=== PATIENT | female | born 1930 | race Hispanic/Latino ===

== ENCOUNTER 2017-11-17 14:31 | Emergency (ER) | payer MEDICARE ==
[2017-11-17 14:54] VITALS: BMI 25.7
[2017-11-17 15:00] VITALS: RESP 18; TEMP 97.4
--- NOTE | 2017-11-17 15:18 | ED PDOC ---
Arrival/HPI - General Chief Complaint: Trauma Time Seen by Provider: 11/17/17 15:05 Historian: Patient - History of Present Illness Narrative History of Present Illness (Text): 11/17/17 15:14 Michela Mcgarry is an 87 year old female who presents to the emergency department complaining of bruising to her right inner thigh s/p mechanical fall 5 days ago. Patient states that she was fixing blinds while standing on a stepping stool, when she fell to the floor. No loss of consciousness or head injury. Patient noticed the bruises two days after and notes that it is painful to walk. Patient went to her PMD Dr. Castro this morning, who directed her to the emergency department. Patient notes that she has been taking Advil for her pain but did not take any pain medication today. Patient denies any vomiting or any other complaints at this time. PMD: Dr. Castro Time/Duration: < week (5 days) Symptom Onset: Sudden Symptom Course: Improving Activities at Onset: Light Context: Home Past Medical History - Provider Review Nursing Documentation Reviewed: Yes - Infectious Disease Hx of Infectious Diseases: None - Tetanus Immunization Tetanus Immunization: Unknown - Cardiac Hx Hypertension: Yes - Pulmonary Hx Respiratory Disorders: No - Neurological Hx Paralysis: No - HEENT Hx HEENT Disorder: No - Renal Hx Renal Disorder: No - Endocrine/Metabolic Hx Diabetes Mellitus Type 2: Yes - Hematological/Oncological Hx Blood Transfusions: No - Integumentary Hx Dermatological Disorder: No - Musculoskeletal/Rheumatological Hx Musculoskeletal Disorders: No - Gastrointestinal Hx Gastrointestinal Disorders: No - Genitourinary/Gynecological Hx Genitourinary Disorders: No - Psychiatric Hx Emotional Abuse: No Hx Physical Abuse: No Hx Substance Use: No - Past Surgical History Past Surgical History: No Previous - Surgical History Hx Hysterectomy: Yes - Anesthesia Hx Anesthesia Reactions: No - Suicidal Assessment Feels Threatened In Home Enviroment: No Family/Social History - Physician Review Nursing Documentation Reviewed: Yes Family/Social History: No Known Family HX Smoking Status: Never Smoked Hx Alcohol Use: No Hx Substance Use: No Hx Substance Use Treatment: No Allergies/Home Meds Allergies/Adverse Reactions: Allergies No Known Allergies Allergy (Verified 08/21/14 16:27) Home Medications: Home Meds Medication Instructions Recorded Confirmed Lisinopril [Prinivil] 1 tab PO DAILY 11/17/17 11/17/17 SITagliptin [Januvia] 1 tab PO DAILY 11/17/17 11/17/17 Review of Systems - Physician Review All systems were reviewed & negative as marked: Yes - Review of Systems Constitutional: absent: Fevers, Night Sweats Eyes: absent: Vision Changes ENT: absent: Hearing Changes Respiratory: absent: SOB, Cough Cardiovascular: absent: Chest Pain Gastrointestinal: absent: Abdominal Pain Genitourinary Female: absent: Dysuria, Frequency Musculoskeletal: absent: Arthralgias Skin: Other (bruising to right inner thigh) Neurological: absent: Headache Endocrine: absent: Diaphoresis Hemo/Lymphatic: absent: Adenopathy Psychiatric: absent: Anxiety, Depression Physical Exam - Physical Exam Narrative Physical Exam (Text): Constitutional: No acute distress. Head: Normocephalic. Atraumatic. Eyes: PERRL. ENT: Moist mucous membranes. Neck: Supple. No Midline tenderness. Cardiovascular: Regular rate. Chest: No tenderness. Respiratory: Clear to auscultation bilaterally. GI: Soft. Nontender. Nondistended. Back: No CVA tenderness. No Midline tenderness. Musculoskeletal: Ecchymosis to the right medial thigh. No tenderness or obvious swelling. Full ROM. Skin: No rash. Neurologic: Alert, no focal deficit. Vital Signs Reviewed: Yes Vital Signs Temp Pulse Resp BP Pulse Ox 11/17/17 17:20 75 18 152/82 H 98 11/17/17 14:58 97.4 F L 93 H 18 142/82 95 Temperature: Afebrile Blood Pressure: Normal Pulse: Tachycardic Respiratory Rate: Normal Appearance: Positive for: Well-Appearing, Non-Toxic, Comfortable Pain Distress: None Mental Status: Positive for: Alert and Oriented X 3 Medical Decision Making ED Course and Treatment: 11/17/17 15:15 Impression: 87 year old female complaining of bruising to right inner thigh s/p mechanical fall 5 days ago. Plan: -- Femur X-ray -- Right Hip X-ray -- Toradol -- Reassess and disposition Progress Notes: 11/17/17 15:[address] Castro who is aware and agrees with patient plan. 11/17/17 16:12 Right Femur X-ray Creator : Candis Cook MD FINDINGS: FEMUR:Bone alignment and mineralization are normal. There is no acute fracture or bone destruction SOFT TISSUES:Normal. OTHER FINDINGS:None. IMPRESSION: No acute fracture. 11/17/17 16:14 Right Hip X-ray: Creator : Candis Cook MD FINDINGS: BONES: The pelvic ring is intact. There is a probable acute nondisplaced fracture in the right inferior pubic ramus. There is stable focal sclerosis in the periarticular left sacrum. JOINTS:The joint spaces are preserved. 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 SOFT TISSUES:Normal. OTHER FINDINGS:None. IMPRESSION: Suspect acute nondisplaced fracture in the right inferior pubic ramus. Please note occult fractures cannot be excluded on plain radiographs. If there is a persistent clinical concern, an MRI of the hip may be performed for further evaluation. 11/17/17 17:27 Dr. Quinn consulted, evaluated patient in Emergency department, will see in office in 3 weeks, given care instructions. - RAD Interpretation Radiology Orders: 11/17/17 15:14 Hip Right [HIP MIN 2V W/ PELVIS RT] [RAD] Stat 11/17/17 15:15 FEMUR MIN 2 VIEWS RT [RAD] Stat - Medication Orders Current Medication Orders: Discontinued Medications Ketorolac Tromethamine (Toradol) 15 mg IM STAT STA Stop: 11/17/17 15:18 Last Admin: 11/17/17 16:15 Dose: 15 mg MAR Pain Assessment Document 11/17/17 16:15 OCS (Rec: 11/17/17 16:17 OCS [id number]) Pain Reassessment Is this a pain reassessment? Yes Sleep Is patient sleeping during reassessment? No Presence of Pain Presence of Pain Yes IM Administration Charges Document 11/17/17 16:15 OCS (Rec: 11/17/17 16:17 OCS [id number]) Charges for Administration # of IM Administrations 1 - Scribe Statement The provider has reviewed the documentation as recorded by the Zaida Layton Provider Scribe Attestation: All medical record entries made by the Scribe were at my direction and personally dictated by me. I have reviewed the chart and agree that the record accurately reflects my personal performance of the history, physical exam, medical decision making, and the department course for this patient. I have also personally directed, reviewed, and agree with the discharge instructions and disposition. Disposition/Present on Arrival - Present on Arrival Any Indicators Present on Arrival: No History of DVT/PE: No History of Uncontrolled Diabetes: No Urinary Catheter: No History of Decub. Ulcer: No History Surgical Site Infection Following: None - Disposition Have Diagnosis and Disposition been Completed?: Yes Diagnosis: Inferior pubic ramus fracture Disposition: HOME/ ROUTINE Disposition Time: 17:28 Patient Plan: Discharge Condition: STABLE Discharge Instructions (ExitCare): Pelvic Fracture (DC) Referrals: Sheryl Castro MD [Primary Care Provider] - Follow up with primary Dagoberto Cardona DO [Staff Provider] - Follow up with primary Forms: [facility] (Moroccan)
--- NOTE | 2017-11-17 16:02 | RAD ---
PROCEDURE: Right Hip Radiographs. HISTORY: Fall, thigh bruising COMPARISON: None. FINDINGS: BONES: The pelvic ring is intact. There is a probable acute nondisplaced fracture in the right inferior pubic ramus. There is stable focal sclerosis in the periarticular left sacrum. JOINTS: The joint spaces are preserved. 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 SOFT TISSUES: Normal. OTHER FINDINGS: None. IMPRESSION: Suspect acute nondisplaced fracture in the right inferior pubic ramus. Please note occult fractures cannot be excluded on plain radiographs. If there is a persistent clinical concern, an MRI of the hip may be performed for further evaluation.
--- NOTE | 2017-11-17 16:04 | RAD ---
PROCEDURE: Right Femur Radiographs. HISTORY: Thigh bruising COMPARISON: None. TECHNIQUE: AP and Lateral Radiographs of the right femur. FINDINGS: FEMUR: Bone alignment and mineralization are normal. There is no acute fracture or bone destruction SOFT TISSUES: Normal. OTHER FINDINGS: None. IMPRESSION: No acute fracture.
[2017-11-17 17:21] VITALS: BP 152/82; PULSE 75; O2SAT 98
--- NOTE | 2017-11-18 03:41 | CON ---
DATE: 11/17/2017 ORTHOPEDIC CONSULTATION HISTORY OF PRESENT ILLNESS: An 87-year-old female of Dr. Castro. The patient was seen on 11/17/2017 for a fall at home 4 days ago. No loss of consciousness, but she injured her right proximal thigh when she fell on the stool. X-ray shows she has a nondisplaced fracture of the inferior ischeal ramus with some sclerosis _ it has been there and it is starting to heal. She can actually do a straight leg raising. She has some mild ecchymosis of the right proximal thigh anteriorly and we will treat her symptomatically with a brace or a cane, does not have to be admitted. I will follow her in the office and I will talk to Dr. Castro. FINAL DIAGNOSIS: Nondisplaced fracture, right ischeal ramus. PLAN: Ambulate with a cane and activities of daily living without much lifting and minimizes the stairs. Dagoberto Cardona DO MTDNain
== END 2017-11-17 17:52 | disposition home or self-care (01) ==
LOC: ED 14:31
DX: S32.501A Unspecified fracture of right pubis, initial encounter for closed fracture (principal); W17.89XA Other fall from one level to another, initial encounter; Y92.009 Unspecified place in unspecified non-institutional (private) residence as the place of occurrence of the external cause
CPT/HCPCS: 73502; 73552; 96372; 99284; J1885

== ENCOUNTER 2018-09-01 10:25 | Inpatient (IN) | payer MEDICARE ==
[2018-09-01 10:32] VITALS: BMI 25.0
--- NOTE | 2018-09-01 11:50 | ED PDOC ---
Arrival/HPI - General Chief Complaint: Lower Extremity Problem/Injury Time Seen by Provider: 09/01/18 10:39 Historian: Patient - History of Present Illness Narrative History of Present Illness (Text): 09/01/18 11:51 88 year old female, whose past medical history includes hypertension, diabetes, and hysterectomy, presents to the emergency department complaining of left hip pain s/p mechanical fall last night. She states she was in the kitchen last night when she turned quickly and fell landing on her left side. She says she doesn't usually make quick turns because she has a knee problem and knows if she does she will fall. Patient noted while sitting or laying down she has no pain, but the pain worsens in her hip any time she puts weight on it. She has taken Tylenol for the pain with minimal improvement. She denies head injury, headache, dizziness, weakness, shortness of breath, chest pain, fevers, chills, abdominal pain, nausea, vomiting, diarrhea, neck pain, or any other complaint. PMD: Dr. Sheryl Castro Time/Duration: 24 hours Symptom Onset: Gradual Symptom Course: Unchanged Activities at Onset: Light Context: Home Past Medical History - Provider Review Nursing Documentation Reviewed: Yes - Travel History Have you recently traveled outside [place] w/in the past 3 mons?: No - Infectious Disease Hx of Infectious Diseases: None - Tetanus Immunization Tetanus Immunization: Unknown - Cardiac Hx Hypertension: Yes - Pulmonary Hx Respiratory Disorders: No - Neurological Hx Paralysis: No - HEENT Hx HEENT Disorder: No - Renal Hx Renal Disorder: No - Endocrine/Metabolic Hx Diabetes Mellitus Type 2: Yes - Hematological/Oncological Hx Blood Transfusions: No - Integumentary Hx Dermatological Disorder: No - Musculoskeletal/Rheumatological Hx Musculoskeletal Disorders: No - Gastrointestinal Hx Gastrointestinal Disorders: No - Genitourinary/Gynecological Hx Genitourinary Disorders: No - Psychiatric Hx Emotional Abuse: No Hx Physical Abuse: No Hx Substance Use: No - Past Surgical History Past Surgical History: No Previous - Surgical History Hx Hysterectomy: Yes - Anesthesia Hx Anesthesia: Yes Hx Anesthesia Reactions: No - Suicidal Assessment Feels Threatened In Home Enviroment: No Family/Social History - Physician Review Nursing Documentation Reviewed: Yes Family/Social History: No Known Family HX Smoking Status: Never Smoked Hx Alcohol Use: No Hx Substance Use: No Hx Substance Use Treatment: No Allergies/Home Meds Allergies/Adverse Reactions: Allergies No Known Allergies Allergy (Verified 08/21/14 16:27) Home Medications: Home Meds Medication Instructions Recorded Confirmed Lisinopril [Prinivil] 1 tab PO DAILY 11/17/17 09/01/18 SITagliptin [Januvia] 1 tab PO DAILY 11/17/17 09/01/18 Review of Systems - Physician Review All systems were reviewed & negative as marked: Yes - Review of Systems Constitutional: absent: Fatigue, Fevers Eyes: absent: Vision Changes, Photophobia, Eye Pain Respiratory: absent: SOB, Cough Cardiovascular: absent: Chest Pain, Palpitations Gastrointestinal: absent: Abdominal Pain, Diarrhea, Nausea, Vomiting Genitourinary Female: absent: Dysuria, Frequency Musculoskeletal: Arthralgias, Other (left sided hip pain). absent: Back Pain, Neck Pain Skin: absent: Rash, Pruritis Neurological: absent: Headache, Dizziness Physical Exam Vital Signs Reviewed: Yes Vital Signs Temp Pulse Resp BP Pulse Ox 09/01/18 10:40 97.7 F 95 H 18 130/83 97 Temperature: Afebrile Blood Pressure: Normal Pulse: Tachycardic Respiratory Rate: Normal Appearance: Positive for: Well-Appearing, Non-Toxic, Comfortable Pain Distress: None Mental Status: Positive for: Alert and Oriented X 3 - Systems Exam Head: Present: Atraumatic, Normocephalic Pupils: Present: PERRL Extroacular Muscles: Present: EOMI Conjunctiva: Present: Normal Mouth: Present: Moist Mucous Membranes Neck: Present: Normal Range of Motion. No: MIDLINE TENDERNESS, Paraspinal Tenderness Respiratory/Chest: Present: Clear to Auscultation, Good Air Exchange. No: Respiratory Distress, Accessory Muscle Use Cardiovascular: Present: Regular Rate and Rhythm, Normal S1, S2. No: Murmurs Abdomen: No: Tenderness, Distention, Peritoneal Signs, Rebound, Guarding Back: Present: Normal Inspection Upper Extremity: Present: Normal Inspection. No: Cyanosis, Edema Lower Extremity: Present: NORMAL PULSES, Tenderness (left sided tenderness over the left hip with ecchymosis noted anteriorly/medially), Neurovascularly Intact, Capillary Refill < 2 s. No: Edema, Normal ROM (limited rom of left hip), Swelling, Erythema, Deformity, Temperature Abnormalties Neurological: Present: GCS=15, Speech Normal, Normal Sensory Function Skin: Present: Warm, Dry, Normal Color. No: Rashes Psychiatric: Present: Alert, Oriented x 3 Medical Decision Making ED Course and Treatment: 09/01/18 11:51 Impression: 88 year old female who presents to the emergency department complaining of left sided hip pain. Plan: -- Head Ct w/o contrast -- Left hip X-ray -- Reassess and disposition Prior Visits: Notes and results from previous visits were reviewed. Progress Notes: head CT:FINDINGS: HEMORRHAGE: No intracranial hemorrhage. BRAIN: No mass effect or edema. Mild to moderate age-appropriate diffuse cerebral atrophy. Mild periventricular white matter lucency consistent chronic microvascular ischemic change. No evidence of acute infarct. VENTRICLES: Unremarkable. No hydrocephalus. CALVARIUM: Unremarkable. PARANASAL SINUSES: Unremarkable as visualized. No significant inflammatory changes. MASTOID AIR CELLS: Unremarkable as visualized. No inflammatory changes. OTHER FINDINGS: None. IMPRESSION: No intracranial hemorrhage. Age related atrophy and chronic white matter ischemic change. Otherwise unremarkable. X-rays of the left hip show inferior and superior pubic ramus fractures on the left side. will do a CAT scan of the pelvis to better evaluate CT pelvis; FINDINGS: There are old healed fractures of the right superior and inferior pubic rami. There are acute nondisplaced fractures of the right inferior pubic ramus and of the junction of the left superior pubic ramus with the left acetabulum. No symphyseal fracture is seen. There is no hip fracture seen. The sacrum appears intact. There is no soft tissue hematoma. Intraperitoneal structures of the pelvis are unremarkable. No abnormal bowel loops. No evidence of ascites/hemoperitoneum. Unremarkable urinary bladder. Status post hysterectomy. IMPRESSION: Acute nondisplaced fractures of left superior and inferior pubic rami as described. Old healed fractures of the right superior and inferior pubic rami. CBC within normal limits CMP glucose 304 pt reassessment: Patient is resting comfortably in the emergency room. Vital signs are stable. All results discussed in depth with the patient and her daughter.case was discussed with Dr. Castro in depth. He advised Dr. Boles for consult. I spoke with Dr. Kai Barclay in depth regarding the case and he saw patient at bedside advised admission for inability to ambulate with multiple pelvic fractures. all aspects of this case were discussed the attending of record. Impression: Pelvic fracture, inability to ambulate Admit to [facility] RAD Interpretation Radiology Orders: 09/01/18 11:09 HEAD W/O CONTRAST [CT] Stat Hip Left [HIP MIN 2V W/ PELVIS LT] [RAD] Stat - Scribe Statement The provider has reviewed the documentation as recorded by the Scribe Mary Hinson Provider Scribe Attestation: All medical record entries made by the Scribe were at my direction and personally dictated by me. I have reviewed the chart and agree that the record accurately reflects my personal performance of the history, physical exam, medical decision making, and the department course for this patient. I have also personally directed, reviewed, and agree with the discharge instructions and disposition. Disposition/Present on Arrival - Present on Arrival Any Indicators Present on Arrival: No History of DVT/PE: No History of Uncontrolled Diabetes: No Urinary Catheter: No History of Decub. Ulcer: No History Surgical Site Infection Following: None - Disposition Have Diagnosis and Disposition been Completed?: Yes Diagnosis: Fracture of inferior pubic ramus, Fracture of superior pubic ramus, Unable to ambulate Disposition: HOSPITALIZED Disposition Time: 12:20 Patient Plan: Admission Patient Problems: Current Active Problems Problem Status Onset Fracture of inferior pubic ramus Acute Fracture of superior pubic ramus Acute Condition: FAIR Forms: [employer] (Upper Sorbian)
--- NOTE | 2018-09-01 12:56 | CT ---
Date of service: 09/01/2018 PROCEDURE: CT HEAD WITHOUT CONTRAST. HISTORY: fall COMPARISON: None available. TECHNIQUE: Axial computed tomography images were obtained through the head/brain without intravenous contrast. Radiation dose: Total exam DLP = 865.25 mGy-cm. This CT exam was performed using one or more of the following dose reduction techniques: Automated exposure control, adjustment of the mA and/or kV according to patient size, and/or use of iterative reconstruction technique. FINDINGS: HEMORRHAGE: No intracranial hemorrhage. BRAIN: No mass effect or edema. Mild to moderate age-appropriate diffuse cerebral atrophy. Mild periventricular white matter lucency consistent chronic microvascular ischemic change. No evidence of acute infarct. VENTRICLES: Unremarkable. No hydrocephalus. CALVARIUM: Unremarkable. PARANASAL SINUSES: Unremarkable as visualized. No significant inflammatory changes. MASTOID AIR CELLS: Unremarkable as visualized. No inflammatory changes. OTHER FINDINGS: None. IMPRESSION: No intracranial hemorrhage. Age related atrophy and chronic white matter ischemic change. Otherwise unremarkable.
[2018-09-01 13:36] LABS: BASO # 0.03 K/mm3 (0.0-2.0); BASO % 0.4 % (0.0-3.0); EOS % 0.4 % (1.5-5.0); HEMOGLOBIN 13.2 g/dL (12.0-16.0); LYMPH # 1.2 (1.2-3.4); MEAN CELL VOLUME 88.3 fl (80.0-105.0); MEAN CORPUSCULAR HEMOGLOBIN 30.3 pg (25.0-35.0); MEAN CORPUSCULAR HGB CONC 34.4 g/dl (31.0-37.0); MEAN PLATELET VOLUME 10.4 fl (7.0-11.0); MONO # 0.4 (0.1-0.6); MONO % 6.2 % (1.0-6.0); RBC 4.35 10^6/uL (3.5-6.1); RED CELL DISTRIBUTION WIDTH 12.8 % (11.5-14.5); WHITE BLOOD COUNT 7.1 10^3/uL (4.5-11.0)
[2018-09-01 13:53] LABS: INR 1.11; PARTIAL THROMBOPLASTIN TIME 30.2 Seconds (26.9-38.3); PROTHROMBIN TIME 12.5 SECONDS (9.4-12.5)
[2018-09-01 13:55] LABS: ALB/GLOB RATIO 1.3 (1.1-1.8); ALBUMIN 3.7 g/dL (3.0-4.8); ALT/SGPT 23 U/L (7-56); AST/SGOT 20 U/L (14-36); BLOOD UREA NITROGEN 21 mg/dL (7-21); CALCIUM 9.9 mg/dL (8.4-10.5); GFR NON-AFRICAN AMERICAN 59
--- NOTE | 2018-09-01 13:59 | RAD ---
PROCEDURE: Left Hip X-ray Radiographs. HISTORY: hip pain COMPARISON: 11/17/2017 FINDINGS: BONES: Probable healed fracture right inferior pubic ramus. Suspected fracture lateral aspect left inferior pubic ramus and questionable healed or healing fracture medial aspect left inferior pubic ramus. Apparent bony gap may be due to osteopenia in this segment of bone there is probable nondisplaced fracture of the lateral aspect left superior pubic ramus. Question fracture of left pubic symphysis of indeterminate age. Consider further evaluation with computed tomography of the pelvis. JOINTS: Normal. SOFT TISSUES: Normal. OTHER FINDINGS: None. IMPRESSION: Multiple pelvic fractures some of which are likely old. Recommend further evaluation with computed tomography of the pelvis. These findings were discussed by telephone with Dr. Mohamud at 1:55 p.m. on 09/01/2018.
--- NOTE | 2018-09-01 14:16 | CT ---
Date of service: 09/01/2018 PROCEDURE: CT pelvis HISTORY: fall, left hip pain, ? pelvic fx on ct COMPARISON: 12/13/2015 TECHNIQUE: 2.5 mm contiguous axial sections were acquired through the pelvis. Sagittal and coronal images were reformatted from the axial scan. Total exam DLP: 485.97 mGy-cm. This CT exam was performed using 1 or more of the following dose reduction techniques: Automated exposure control, adjustment of the mA and/or kV according to patient size, and/or use of iterative reconstruction technique. FINDINGS: There are old healed fractures of the right superior and inferior pubic rami. There are acute nondisplaced fractures of the right inferior pubic ramus and of the junction of the left superior pubic ramus with the left acetabulum. No symphyseal fracture is seen. There is no hip fracture seen. The sacrum appears intact. There is no soft tissue hematoma. Intraperitoneal structures of the pelvis are unremarkable. No abnormal bowel loops. No evidence of ascites/hemoperitoneum. Unremarkable urinary bladder. Status post hysterectomy. IMPRESSION: Acute nondisplaced fractures of left superior and inferior pubic rami as described. Old healed fractures of the right superior and inferior pubic rami.
--- NOTE | 2018-09-01 17:15 | CT ---
Date of service: 09/01/2018 PROCEDURE: CT Lumbar Spine without contrast HISTORY: stenosis COMPARISON: None available. TECHNIQUE: Axial computed tomography images were obtained of the lumbar spine without the use of intravenous contrast. Coronal and sagittal reformatted images were created and reviewed. Radiation dose: Total exam DLP = 984.66 mGy-cm. This CT exam was performed using one or more of the following dose reduction techniques: Automated exposure control, adjustment of the mA and/or kV according to patient size, and/or use of iterative reconstruction technique. FINDINGS: VERTEBRAE: Vertebral bodies are maintained in height. Normal vertebral alignment is maintained. The transverse processes and posterior elements are intact. There is minimal levo scoliotic curvature. DISCS/SPINAL CANAL/NEURAL FORAMINA: L1-2: Narrowed disc space. Minimal disc bulge. No focal disc herniation. Ligamentum flavum hypertrophy. Facet arthropathy. Severe right and moderate left neural foraminal stenosis. Mild central spinal stenosis. L2-3: Narrowed disc space. Moderate right and mild left neural foraminal stenosis. L3-4: Narrowed disc space. Calcified disc bulge. Bilateral facet arthropathy. No focal disc herniation. Moderate central spinal stenosis. Moderate bilateral neural foraminal stenosis. L4-5: Narrowed disc space. No disc bulge or herniation. Bilateral facet arthropathy and mild ligamentum flavum hypertrophy. Mild central spinal stenosis. Moderate to severe bilateral neural foraminal stenosis. L5-S1: Narrowed disc space. No disc bulge or herniation. Large osteophyte seen about the disc space posteriorly. Mild central spinal stenosis bilateral facet arthropathy. Moderate right and severe left neural foraminal stenosis. PARASPINAL SOFT TISSUES: Unremarkable. OTHER FINDINGS: None. IMPRESSION: Multilevel degenerative disc disease. Multilevel disc bulge. No focal disc herniation. Multilevel central spinal stenosis and bilateral neural foraminal stenosis as described. No acute fracture.
[2018-09-01] MEDS: Insulin Reg-LOW-Coverage SC SCH ×2 (18:12→22:57)
--- NOTE | 2018-09-02 00:26 | CON ---
DATE: 09/01/2018 ORTHOPEDIC REPORT HISTORY OF PRESENT ILLNESS: The patient is an 88-year-old female came into the ER today under Dr. Castro service for falling down last night at home and sustaining a stable left pubic and ischial rami fracture with ability to straight leg raising, weak on the left than the right because of the fracture, but she had a similar fracture on the right side of the pelvis about 4 months ago, which healed well and resolved and she still ambulates with a walker, but at this time she feels her legs gave away and she fell, this could be a sign of spinal stenosis of lumbar spine. So, while she is in the hospital we will get a lumbar spine CAT scan to see if she has spinal stenosis. If that is the case, epidural may be able to help her and we will do physical therapy, so she minimizes the chance of falling again and would get her up out of bed to avoid disuse atrophy.she also c/o bilatera knee pain.to also get x-rays of her knees. FINAL DIAGNOSES AND PLAN: Stable left pubic and ischial rami fracture and to workup for spinal stenosis of the lumbar spine that could cause weakness to the lower extremities and that can cause her to fall and when she leaves the rehab portion of her stay, she should consider going, she will not live alone, but to be with her family member or extended subacute rehab. Dagoberto Cardona DO MTDNain
--- NOTE | 2018-09-02 01:10 | HP ---
DATE OF EXAM: 09/01/2018 HISTORY OF PRESENT ILLNESS: This is an 88-year-old female who lives alone at home who was referred into the emergency room with the assistance of [facility] [place], [place] ambulance by family. When reported that the night prior when the patient was getting up to get a cup of tea, she fell and developed some pain in the left groin area. She notified the family the following morning. She denies any loss of consciousness, vertigo, headache, chest pain, shortness of breath, fever or chills. PAST MEDICAL HISTORY: She has a past medical history of vaginal bleeding from a cyst, phi-phcgmgb-bfxyblpmp diabetes, hypertension, nondisplaced fracture of the right pelvis, arthritis of the right knee, and history of hysterectomy. HOME MEDICATIONS: Consist of glimepiride 4 mg twice a day, lisinopril 10 mg daily, and she is on a heart-healthy low carb diet. SOCIAL HISTORY: She is a nonsmoker, nondrinker, and non drug user. ALLERGIES: SHE DENIES. PHYSICAL EXAMINATION: GENERAL: She is alert and oriented x3. NECK: Supple. LUNGS: Clear. HEART: S1 and S2 rhythm. ABDOMEN: Soft with positive bowel sounds. EXTREMITIES: No evidence of edema. There is discomfort in the left groin area upon elevation of the left leg. There is no evidence of ecchymosis. LABORATORY DATA: Shows a WBC of 7.1, RBC 4.35, hemoglobin 13.2, hematocrit 38.4, and platelet count is 137. PT is 12.5 with an INR of 1.11 and PTT is 30.2. Chemistry shows normal electrolytes. The BUN is 21 and the creatinine is 0.9. Her blood sugar is 304. LFTs are normal. Albumin is 3.7. The patient had a CAT scan of the head, which is read by the radiologist as showing no intracranial hemorrhage, age related atrophy, and chronic white matter ischemic changes. She had an x-ray of the hip and pelvis, which showed multiple pelvic fractures some of which are likely old, fracture of the left pubic symphysis of indeterminate age, fracture of the left lateral aspect of the left inferior pubic ramus questionable healed fracture of the medial aspect of left inferior pubic ramus, and probable healed fracture of the right inferior pubic ramus. She had a CT of the pelvis that showed an acute nondisplaced fractures of the left superior and inferior pubic rami, old healed fracture of the right superior and inferior pubic rami. IMPRESSION: This is an 88-year-old female fell at home sustaining fractures to the pelvis. 1. Fractures of the pelvis with pain and gait disorder. 2. Svf-ehaxcta-hcijtesrs diabetes with hyperglycemia. 3. Essential hypertension history. PLAN: 1. We will get an orthopedic consult. 2. Pain management. 3. Admit the patient with diet and sugar control. Further treatment plan pending results of further diagnostic studies and input from the individual consultants. Sehryl Castro MD MTDD
[2018-09-02] MEDS: Insulin Reg-LOW-Coverage SC SCH ×4 (08:00→22:00)
--- NOTE | 2018-09-02 11:44 | PN ---
DATE: 09/02/2018 SUBJECTIVE: An 88-year-old female admitted to [facility] after a mechanical fall at home as per the patient. OBJECTIVE: VITAL SIGNS: Temperature is 98, her pulse is 63, blood pressure is 138/78, respiratory rate is 18, oxygen sat is 96% on room air. GENERAL: She is alert and oriented x3. NECK: Supple. LUNGS: Clear. HEART: S1, S2 rhythm. ABDOMEN: Soft with positive bowel sounds. EXTREMITIES: Show no evidence of edema. LABORATORY DATA: 1. The patient had a CAT scan of the head which was reported as showing no acute findings. She had a CAT scan of the lumbar spine which is reported as showing spinal stenosis. An orthopedic consult has been requested. 2. She has non-insulin dependent diabetes and placed on a diet with medication. We will monitor the patient's blood sugars. IMPRESSION AND PLAN: We will continue current level of care. She is status post fall at home with fractures of the left pelvis. Meds reviewed with staff and patient. >35minutes Sheryl Castro MD WALT
--- NOTE | 2018-09-02 12:38 | CP.PCM.APN ---
Subjective - Date & Time of Evaluation Date of Evaluation: 09/02/18 Time of Evaluation: 08:00 - Subjective Subjective: Pt seen and examined at [facility]. C/O L inner thigh pain when moving. Objective - Vital Signs/Intake and Output Vital Signs (last 24 hours): Temp Pulse Resp BP Pulse Ox 98 F 63 18 140/80 96 09/02/18 07:09 09/02/18 09:22 09/02/18 07:09 09/02/18 09:22 09/02/18 07:09 - Medications Medications: Current Medications Acetaminophen (Tylenol 325mg Tab) 325 mg PO Q8H PRN PRN Reason: Pain, moderate (4-7) Last Admin: 09/01/18 19:59 Dose: 325 mg Codeine Sulfate (Codeine) 30 mg PO Q8H PRN PRN Reason: Pain, moderate (4-7) Glimepiride (Amaryl) 4 mg PO ACBD [facility] Last Admin: 09/02/18 09:22 Dose: 4 mg Insulin Human Regular (Humulin R Low) 0 units SC ACHS [facility]; Protocol Last Admin: 09/02/18 11:54 Dose: 4 units Lisinopril (Zestril) 10 mg PO DAILY [facility] Last Admin: 09/02/18 09:22 Dose: 10 mg - Labs Labs: 09/01/18 13:20 09/01/18 13:20 PT 12.5 SECONDS (9.4-12.5) 09/01/18 13:20 INR 1.11 09/01/18 13:20 APTT 30.2 Seconds (26.9-38.3) 09/01/18 13:20 - Constitutional Appears: Well, No Acute Distress - Eye Exam Eye Exam: Normal appearance - Neck Exam Neck Exam: Full ROM - Respiratory Exam Respiratory Exam: Clear to Ausculation Bilateral, NORMAL BREATHING PATTERN - Cardiovascular Exam Cardiovascular Exam: REGULAR RHYTHM, +S1, +S2 - GI/Abdominal Exam GI & Abdominal Exam: Soft, Normal Bowel Sounds - Rectal Exam Rectal Exam: Deferred - Extremities Exam Extremities Exam: Normal Inspection - Neurological Exam Neurological Exam: Alert, Awake, Oriented x3 Assessment and Plan - Assessment and Plan (Free Text) Assessment: Pt is an 88 y.o. female w/ pmhx of hypertension, diabetes, and hysterectomy who presented to ED w/ c/o left hip pain s/p mechanical fall. She was found to have acute nondisplace fx of L superior and inferior pubic rami. Impressions Head CT 09/01/18 11:09 IMPRESSION: No intracranial hemorrhage. Age related atrophy and chronic white matter ischemic change. Otherwise unremarkable. Hip/Pelvis X-Ray 09/01/18 11:09 IMPRESSION: Multiple pelvic fractures some of which are likely old. Recommend further evaluation with computed tomography of the pelvis. These findings were discussed by telephone with Dr. Mohamud at 1:55 p.m. on 09/01/2018. Pelvis CT 09/01/18 12:20 IMPRESSION: Acute nondisplaced fractures of left superior and inferior pubic rami as described. Old healed fractures of the right superior and inferior pubic rami. Lumbar Spine CT 09/01/18 15:27 IMPRESSION: Multilevel degenerative disc disease. Multilevel disc bulge. No focal disc herniation. Multilevel central spinal stenosis and bilateral neural foraminal stenosis as described. No acute fracture. Plan: Pain management Ortho on consult Physical therapy pending REHANA/AINSLEY dc planning Will continue to follow
--- NOTE | 2018-09-02 14:12 | CP.PCM.CON ---
History of Present Illness - History of Present Illness History of Present Illness: Seen for Dr. Bautista- pain management 88 year old female s/p mechanical fall now with pain in the left groin which is only elicited with weight bearing/movement of left lower extremity. Denies any LOC, vertigo, chest pain or shortness of breath. Pain described as dull, 'deep in my groin' and subsides when laying still and not moving Review of Systems - Review of Systems All systems: reviewed and no additional remarkable complaints except Review of Systems: per HPI Past Patient History - Infectious Disease Hx of Infectious Diseases: None - Tetanus Immunizations Tetanus Immunization: Unknown - Past Social History Smoking Status: Never Smoked - CARDIAC Hx Hypertension: Yes - PULMONARY Hx Respiratory Disorders: No - NEUROLOGICAL Hx Neurological Disorder: No - HEENT Hx HEENT Problems: No Other/Comment: glasses for reading - RENAL Hx Chronic Kidney Disease: No - ENDOCRINE/METABOLIC Hx Diabetes Mellitus Type 1: Yes - HEMATOLOGICAL/ONCOLOGICAL Hx Blood Disorders: No - INTEGUMENTARY Hx Dermatological Problems: No - MUSCULOSKELETAL/RHEUMATOLOGICAL Hx Musculoskeletal Disorders: No Hx Falls: Yes - GASTROINTESTINAL Hx Gastrointestinal Disorders: No - GENITOURINARY/GYNECOLOGICAL Hx Genitourinary Disorders: No - PSYCHIATRIC Hx Psychophysiologic Disorder: No - SURGICAL HISTORY Hx Surgeries: Yes - ANESTHESIA Hx Anesthesia: Yes Hx Anesthesia Reactions: No Meds Allergies/Adverse Reactions: Allergies Allergy/AdvReac Type Severity Reaction Status Date / Time No Known Allergies Allergy Verified 08/21/14 16:27 - Medications Medications: Current Medications Acetaminophen (Tylenol 325mg Tab) 325 mg PO Q8H PRN PRN Reason: Pain, moderate (4-7) Last Admin: 09/01/18 19:59 Dose: 325 mg Codeine Sulfate (Codeine) 30 mg PO Q8H PRN PRN Reason: Pain, moderate (4-7) Glimepiride (Amaryl) 4 mg PO ACBD [facility] Last Admin: 09/02/18 09:22 Dose: 4 mg Insulin Human Regular (Humulin R Low) 0 units SC [facility]; Protocol Lisinopril (Zestril) 10 mg PO DAILY [facility] Last Admin: 09/02/18 09:22 Dose: 10 mg Sitagliptin Phosphate (Januvia) 100 mg PO DAILY [facility] Physical Exam - Extremities Exam Additional comments: strength 5/5 in lower extremities, sensation equal and intact bilaterally. No swelling, redness noted. Results - Vital Signs Recent Vital Signs: Last Vital Signs Temp 98 F 09/02/18 07:09 Pulse 63 09/02/18 09:22 Resp 18 09/02/18 07:09 BP 140/80 09/02/18 09:22 Pulse Ox 96 09/02/18 07:09 - Labs Result Diagrams: 09/01/18 13:20 09/01/18 13:20 Labs: Laboratory Results - last 24 hr 09/01/18 09/02/18 22:57 06:30 POC Glucose (mg/dL) 229 H Hemoglobin A1c 11.1 H D Assessment & Plan - Assessment and Plan (Free Text) Assessment: Plan to follow from Dr. Bautista
--- NOTE | 2018-09-02 16:17 | RAD ---
Date of service: 09/01/2018 PROCEDURE: Bilateral Knee Radiographs. HISTORY: knee pain COMPARISON: None. FINDINGS: BONES: No acute fracture or destructive bony lesion identified, bilaterally. Diffuse osteopenia suggests osteoporosis. JOINTS: No subluxation or dislocation bilaterally. Joint space narrowing appears moderate at the medial femorotibial and patellofemoral articulations but not at the bilateral lateral femorotibial compartments. Articular cortical sclerosis identified in all 3 compartments with limited lateral femorotibial compartment osteophyte development. SOFT TISSUES: Right Knee: Normal. Left Knee: Normal. JOINT EFFUSION: Trace bilateral suprapatellar bursa effusions present. OTHER FINDINGS: None. IMPRESSION: Moderate tricompartmental osteoarthritis without fracture, subluxation or dislocation evident. Diffuse osteopenia suggests osteoporosis.
--- NOTE | 2018-09-02 19:36 | CON ---
DATE: 09/02/2018 NEUROLOGY CONSULTATION CHIEF COMPLAINT: Low back pain and abnormal gait. HISTORY OF PRESENT ILLNESS: This is an 88-year-old woman with history of uap-mjucsqz-xaxfminou diabetes mellitus, hypertension, nondisplaced fracture of the right pelvis, and arthritis of the knees, who came to the emergency room because the night prior when the patient was getting up to get a cup of tea, she developed some pain in her left groin, was brought to the hospital and left groin pain was elicited with weightbearing movements and moving the left lower extremity. She denies any low back pain or any radicular symptoms from the lumbosacral area. She has wide-based waddling gait and seems very deconditioned. CT of the lumbosacral spine shows multilevel degenerative disease with multilevel disk bulge. No focal disk herniation, but multilevel spinal stenosis and bilateral neuroforaminal stenosis more described at L4-L5 and L5-S1. CAT scan of the pelvis showed acute nondisplaced fracture of the left superior and inferior pubic rami and old healed fracture of the right superior and inferior pubic rami. Pain management is on board. Blood sugars when she came in was elevated of 304, today it is 229. Her A1c is 11.1 indicating poorly controlled diabetes. At this time, she will benefit from physical therapy. PAST MEDICAL HISTORY: As above. SOCIAL HISTORY: No illicit drug use, smoking, or ETOH abuse. HOME MEDICATIONS: Reviewed by nurses' reconciliation sheet. ALLERGIES: NO KNOWN DRUG ALLERGIES. REVIEW OF SYSTEMS: A 14-point review of systems is negative except as per HPI. PHYSICAL EXAMINATION: GENERAL: The patient is sitting up in bed, in no acute distress. VITAL SIGNS: Temperature 98, pulse rate 60, blood pressure 137/78, respiratory rate 18, and oxygen saturation is 96% on room air. HEENT: Atraumatic and normocephalic. PERRLA. Extraocular muscles are intact. NECK: Supple. No JVD. No adenopathy noted. HEART: S1 and S2, normal rate and rhythm. No murmurs, rubs or gallops. LUNGS: Clear to auscultation. No adventitious sounds. ABDOMEN: Soft, nontender, and nondistended. Bowel sounds are present. EXTREMITIES: No clubbing. No cyanosis. Peripheral pulses 2+ felt bilaterally. NEUROLOGIC: The patient is alert and oriented to person, place, month, and year. Speech is fluent without errors. Cranial nerves II through XII intact. Motor exam; moves all extremities equally. Toes are downgoing. Sensory exam; decreased light touch and pinprick up to the calves bilaterally. Decreased vibration at the toes. DTRs are 2+ throughout and 1 at both knees and ankles. Coordination, [id number] is intact. No dysmetria noted. Gait is deferred for now. LABORATORY DATA: A1c is 11.1 and today's blood sugar is 229. IMPRESSION: Gait dysfunction secondary to underlying arthritis in the bilateral knees as well as the lumbosacral area. PLAN: We will recommend: 1. Physical therapy: Gait balance and muscle strengthening exercises, TENS unit, lumbosacral stretches, myofascial pain release techniques. 2. To keep better control of her blood sugars. Keep blood sugars to 140 to 180 and diabetic education that need to be given, given her A1c is 11.1 indicating poorly controlled diabetes. 3. She has acute nondisplaced fracture of the left pubic rami and recommended to follow up with conservative management with Orthopedics before we would recommend subacute rehab. MRI of the knees to see the degree of arthritis in her knees, which could defer with her gait as well. Thank you for this consult. Luke Disla MD
--- NOTE | 2018-09-03 01:49 | CON ---
DATE: 09/02/2018 ENDOCRINOLOGY CONSULT ROOM: 562. HISTORY OF PRESENT ILLNESS: This is an 88-year-old female with recent admission for severe left hip pain following an accidental fall at home and sustained a pelvic fracture in the pubic ramus area and is now being referred for diabetic evaluation and management. PAST MEDICAL HISTORY: History of type 2 diabetes, currently on Januvia taken as 100 mg once daily. History of hypertension and dyslipidemia. FAMILY HISTORY: Positive for hypertension and heart disease. SOCIAL HISTORY: The patient has supportive family. No known substance use. REVIEW OF SYSTEMS: Admits to episodic bouts of dizziness and lightheadedness with suboptimal energy level and easy fatigability and tiredness. No chest pains or palpitations. Her oral intake has been variable with occasional dyspepsia and nausea and habitual constipation. PHYSICAL EXAMINATION GENERAL: An average built female in no apparent distress. VITAL SIGNS: Blood pressure of 140/80; pulse of 100 beats per minute, regular; temperature 98; respirations 20; height is 5 feet 5 inches; weight is 150 pounds HEENT: Head normocephalic. Eyes anicteric with pink conjunctivae. Funduscopy not possible at this time. Ears, nose and throat otherwise normal. NECK: Supple. Thyroid gland is normal size. No carotid bruits. No cervical adenopathy. CARDIOPULMONARY: Some adynamic precordium. S1, S2 is rapid and regular. LUNGS: Clear to auscultation. ABDOMEN: Flat, soft with positive bowel sounds. EXTREMITIES: No peripheral edema. Pulses are +2 bilaterally. LABORATORY: Her chemistry showed a BUN of 21, sodium 137, potassium 4.8, chloride 107, CO2 of 25, glucose 304 and creatinine 0.9. Her A1c is extremely elevated at 11.1%. ASSESSMENT: This is an 88-year-old female with uncontrolled type 2 diabetes and recent hyperglycemic accelerations, most likely related to the physical stressors of the pelvic fracture, causing increased insulin resistance thereof and transient hyperglycemic accelerations. PLAN OF MANAGEMENT: We will modify the current sliding scale and detailed orders have been given. We will add Januvia given as 100 mg once daily and continue the Amaryl at 4 mg b.i.d. before breakfast and dinner as ordered. However, if hyperglycemic levels persist overnight, then we will start her on basal insulin as indicated. We will modify the coverage. We will obtain serial chemistries and supplement accordingly as needed and also baseline thyroid function studies as ordered. We will follow. Anne-Marie Shah MD
[2018-09-03 07:11] LABS: ALB/GLOB RATIO 1.1 (1.1-1.8); ALBUMIN 3.3 g/dL (3.0-4.8); ALT/SGPT 24 U/L (7-56); AST/SGOT 16 U/L (14-36); BLOOD UREA NITROGEN 22 mg/dL (7-21); CALCIUM 9.4 mg/dL (8.4-10.5); GFR NON-AFRICAN AMERICAN 52; HDL CHOLESTEROL 43 mg/dL (29-60)
[2018-09-03 07:25] LABS: LDL CHOLESTEROL 79 mg/dL (0-129)
[2018-09-03] MEDS: Insulin Reg-LOW-Coverage SC SCH ×4 (08:26→22:24)
--- NOTE | 2018-09-03 13:33 | PN ---
DATE: 09/03/2018 SUBJECTIVE: An 88-year-old female status post fall at home with pain in the left groin area secondary to pelvic fractures. Nursing staff states that during the night, the patient was okay. OBJECTIVE: VITAL SIGNS: This morning it is reported that her temperature is 97.9, her pulse is 74, blood pressure is 127/82, respiratory rate is 18, 96% saturation on room air. GENERAL: She is alert and oriented x3. LUNGS: Clear. HEART: S1, S2 rhythm. ABDOMEN: Soft with positive bowel sounds. EXTREMITIES: Show no evidence of edema. LABORATORY DATA: 1. Showing a blood sugar this morning of 238, TSH is normal 1.73. The patient was seen by Neurology. She has spinal stenosis, arthritis of the knees, an MRI of the knees has been requested by Neurology. 2. She is being followed by Orthopedics. She has fractures of the left pelvic area which creates pain and difficulty walking. 3. She has non-insulin dependent diabetes, has been seen by Endocrinology and is to continue her Amaryl 4 mg twice a day and Januvia is now been added at 100 mg daily. She is also on a sliding insulin scale. She has a history of essential hypertension on Zestril 10 mg daily, Tylenol for moderate pain along with codeine and will continue current level of care. She is been seen by physical therapy for walking assistance. She has been advised to ambulate with assistance with the walker. RECOMMENDATION: Recommendation is that the patient go to Transitional Care Unit and continue current level of care at this time, continue pain management and physical therapy. All findings have been discussed at this point with the patient and her daughter and son and with the nursing staff. >35 minutes Sheryl Castro MD MTDNain
--- NOTE | 2018-09-03 21:08 | PN ---
DATE: 09/03/2018 ENDO FOLLOWUP NOTE SUBJECTIVE: This is an 88-year-old female with a recent accidental fall and sustaining a previous rami fracture bilaterally and is now being followed closely for metabolic management. Her glycemic levels are still fluctuating and the glucose levels have ranged from 238 to 344 mg/dL. Her chemistry showed a BUN of 22, sodium 138, potassium 4.2, chloride 109, CO2 of 24, glucose 229 and creatinine 1.0. Her A1c is extremely elevated at 11.1%. 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 PLAN: Plan of management, we will continue this at this time the same modified regular insulin as ordered. We will also continue the oral hypoglycemic therapy with Amaryl b.i.d. and Januvia at 100 mg once daily to start today as ordered. If hyperglycemic levels persist, especially preprandially, then we will have no choice, but to add a basal insulin and/or basal bolus insulin drug combination as ordered. We will obtain serial chemistries and supplement accordingly as needed. We will follow. Anne-Marie Shah MD
[2018-09-04] MEDS: Insulin Reg-LOW-Coverage SC SCH ×4 (08:12→22:37)
--- NOTE | 2018-09-05 01:57 | PN ---
DATE: 09/04/2018 ENDOCRINOLOGY FOLLOWUP NOTE LOCATION: Room 562. SUBJECTIVE: This is an 88-year-old female with an accidental fall at home, sustaining a pubic rami fracture and is now also being followed closely for metabolic management because of recent hyperglycemic accelerations as noted thereof. Her glucose levels have ranged from 230 to 253 mg/dL today as noted. Her chemistries showed a BUN of 22, sodium 138, potassium 4.2, chloride 109, CO2 of 24, glucose 229, and creatinine 1. Her hemoglobin A1c was reported as 11.1 which is quite elevated and indicative of some optimal metabolic control of her diabetic condition on outpatient as noted. PLAN OF MANAGEMENT: We will modify her current oral hypoglycemic drug combination and switch her over from Amaryl to glipizide given as 10 mg b.i.d. before meals to start tomorrow morning as ordered. We will continue the Januvia given as 100 mg once daily as ordered. We will continue also the low dose correction scale using regular insulin as given 4 times daily before meals and at bedtime as ordered. We will obtain serial chemistries and supplement accordingly as needed. We will follow. Anne-Marie Shah MD
[2018-09-05] MEDS: Insulin Reg-LOW-Coverage SC SCH ×4 (09:20→22:57)
[2018-09-05] MEDS ORDERED: Magnesium Hydroxide Susp 30 ml UD PO PRN (10:00)
--- NOTE | 2018-09-05 12:36 | PN ---
DATE: 09/05/2018 LOCATION: Room 562, bed 1. SUBJECTIVE: An 88-year-old female. The patient has been followed for the pubic rami fracture on the left and she was admitted on 09/01/2018. Stable fracture, she is ambulating better. She was sitting up at the edge of the bed and was walking yesterday. The knees, x-ray which was done shows minimal osteoarthritis. MRI confirms that she has no need for orthopedic surgery on her knees and the real reason for the weakness of her knees is the severe spinal stenosis or lumbar spine. She described interest in getting an epidural but that would be the thing to help her strengthen the muscles and for lower legs because the roots of L3-4 are being compressed by the spinal stenosis, but as long as she could walk with a walker and strengthen her knees and quadriceps, she has a low chance of falling again, and she will be safe going home if she can live with somebody or to subacute rehab. I will follow her either way. Orthopedic followup is the spinal stenosis, the pelvic fracture, and the knees had mild arthritis. Dagoberto Cardona DO MTDNain
--- NOTE | 2018-09-05 13:01 | MRI ---
Date of service: 09/04/2018 PROCEDURE: MRI Left Knee HISTORY: Pain. COMPARISON: None available. TECHNIQUE: Multiecho multiplanar sequences were performed through the left knee. FINDINGS: ANTERIOR CRUCIATE LIGAMENT:: Increased long TR signal suspicious for significant sprain or partial tear. POSTERIOR CRUCIATE LIGAMENT:: Intact. MEDIAL MENISCUS:: Inferior articular tear posterior horn. LATERAL MENISCUS:: Grade 3 degenerative intrameniscal signal changes identified. No definite articular tear identified. MEDIAL COLLATERAL LIGAMENT:: Partial tear or sprain posterior fibers MCL ligament. LATERAL COLLATERAL LIGAMENT COMPLEX:: Intact without acute tear. QUADRICEPS TENDON:: Limited distal tendinosis signal changes without acute tear. PATELLAR TENDON:: Intact. CARTILAGE:: Marked cartilaginous largest loss is seen in the medial lateral femorotibial compartments, moderate to severe at the patellofemoral articulation. 2-3 small osteochondral defects are identified at the medial femoral condyle weight-bearing segment. Subchondral cyst formation is seen at the medial tibial plateau. Medial femorotibial compartment osteophyte development is identified as well. JOINT FLUID:: Small medial lateral femorotibial compartment joint effusions are present with mild suprapatellar bursa effusion present. OSSEOUS STRUCTURES:: No acute fracture identified or definite bone contusion. OTHER FINDINGS: Medial popliteal cyst identified measuring 6.0 x 1.2 cm. IMPRESSION: 1. Advanced tricompartmental osteoarthritis. 2-3 small osteochondral defects are seen at the medial femorotibial condyle weight-bearing portion. 2. Partial tear or sprain ACL. 3. Partial tear or sprain MCL. 4. Inferior articular tear posterior horn medial meniscus. 5. [id number] medial popliteal cyst identified.
--- NOTE | 2018-09-05 13:11 | MRI ---
Date of service: 09/04/2018 PROCEDURE: MRI Right Knee HISTORY: Pain. COMPARISON: None available. TECHNIQUE: Multiecho multiplanar sequences were performed through the right knee. FINDINGS: ANTERIOR CRUCIATE LIGAMENT:: Sprain or partial tear identified. POSTERIOR CRUCIATE LIGAMENT:: Intact. MEDIAL MENISCUS:: Grade 2 degenerative intrameniscal signal changes noted. LATERAL MENISCUS:: Grade 2 degenerative intrameniscal signal changes identified. MEDIAL COLLATERAL LIGAMENT:: Sprain or partial tear MCL medial fibers. LATERAL COLLATERAL LIGAMENT COMPLEX:: Intact without definite tear. QUADRICEPS TENDON:: Intact. PATELLAR TENDON:: Intact. CARTILAGE:: Diffuse marked chondromalacia in all 3 compartments with associated joint space narrowing and associated osteophyte development compatible with advanced osteoarthritis. Limited subchondral cyst formation in the medial femorotibial compartment both at the femoral as well as tibial sides of the joint. JOINT FLUID:: Moderate tibial bursa effusion. Mild medial lateral femorotibial compartment effusions. OSSEOUS STRUCTURES:: No fracture or bone contusion evident. OTHER FINDINGS: Sub cm medial popliteal cyst identified. IMPRESSION: 1. ACL sprain or partial tear identified as well as MCL. 2. No definite meniscal tear identified at medial lateral joint compartments although degenerative intrameniscal signal changes are identified instead. 3. Advanced osteoarthritis. Tiny medial popliteal cyst identified. Discordant with preliminary report her regarding osteochondral fractures reported preliminarily by [facility] 09/05/1910 22 a.m..
--- NOTE | 2018-09-05 14:51 | PN ---
DATE: 09/04/2018 SUBJECTIVE: This is an 88-year-old female, resting comfortably in bed this morning. Nursing staff relates that there were no problems. The patient has a temperature of 97.6, her blood pressure is 127/75, pulse is 78, oxygen sat is 96% on room air, respiratory rate is 20. The patient is awaiting MRI of her knees. She is receiving physical therapy. She is status post mechanical fall at home. PHYSICAL EXAMINATION: GENERAL: She is alert and oriented x3. NECK: Supple. No JVD. LUNGS: Clear. HEART: Is in S1, S2 rhythm. ABDOMEN: Soft with positive bowel sounds. EXTREMITIES: No evidence of edema. IMPRESSION: 1. She is currently receiving glipizide 10 mg twice a day along with Januvia 100 mg daily for her non-insulin dependent diabetes, being followed by cfo. 2. She has a history of hypertension, on Zestril 10 mg daily. 3. She has spinal stenosis. 4. We are awaiting MRI studies of her knees. 5. She has a remote history of ovarian cancer disease and hysterectomy, states that recently she saw a electrolysist, Dr. Swann, who told her that everything was fine. We will continue current medical management at this time and follow up the patient's labs and await MRI studies. Sheryl Castro MD MTDNain
[2018-09-05] MEDS: Insulin Detemir 100 units/ml Vial (Levemir) SC SCH (22:58)
[2018-09-06 08:03] LABS: BASO # 0.04 K/mm3 (0.0-2.0); BASO % 0.9 % (0.0-3.0); EOS # 0.2 (0.0-0.7); EOS % 4.5 % (1.5-5.0); HEMOGLOBIN 12.1 g/dL (12.0-16.0); LYMPH # 1.3 (1.2-3.4); LYMPH % 28.5 % (22.0-35.0); MEAN CELL VOLUME 89.9 fl (80.0-105.0); MEAN CORPUSCULAR HEMOGLOBIN 29.8 pg (25.0-35.0); MEAN CORPUSCULAR HGB CONC 33.2 g/dl (31.0-37.0); MEAN PLATELET VOLUME 10.4 fl (7.0-11.0); MONO # 0.5 (0.1-0.6); MONO % 9.7 % (1.0-6.0); RBC 4.06 10^6/uL (3.5-6.1); RED CELL DISTRIBUTION WIDTH 12.8 % (11.5-14.5)
[2018-09-06 08:15] LABS: WHITE BLOOD COUNT 4.6 10^3/uL (4.5-11.0)
[2018-09-06] MEDS: Insulin Reg-LOW-Coverage SC SCH ×4 (08:26→22:46)
[2018-09-06 08:38] LABS: ALB/GLOB RATIO 1.2 (1.1-1.8); ALBUMIN 3.2 g/dL (3.0-4.8); CALCIUM 9.3 mg/dL (8.4-10.5)
--- NOTE | 2018-09-06 10:41 | PN ---
DATE: 09/06/2018 SUBJECTIVE: This is an 88-year-old female with recent admission for a recent accidental fall at home sustaining a pelvic fracture and is now being followed closely also for metabolic management because of recent hyperglycemic accelerations as noted thereof. Her glucose levels overnight have ranged from 166-199 mg/dL. Her chemistry showed a BUN of 35, sodium 138, potassium 4.8, chloride 108, CO2 26, glucose 159 and creatinine 1.1. PLAN: So at this time, we will continue the low-dose basal insulin given and started at with Levemir at 8 units subcu at bedtime daily as ordered. We will continue the oral hypoglycemic drug therapy given in combination with glipizide at 10 mg b.i.d. before meals and Januvia at 100 mg once daily as ordered. We will obtain serial chemistries and supplement accordingly as needed. We will follow. Anne-Marie Shah MD
[2018-09-06] MEDS: POLYETHYLENE GLYCOL 3350 17 GM/Dose PACKET PO SCH (14:00)
--- NOTE | 2018-09-06 14:59 | PN ---
DATE: 09/06/2018 SUBJECTIVE: This is an 88-year-old female resting comfortably this morning, offers no specific complaints and the nursing staff relates that there were no particular problems overnight. Her MRIs of her knees have been noted. They are going to be reviewed by Dr. Dagoberto Cardona. She is receiving occupational and physical therapy and awaiting a bed on PCU. She is also being followed by Endocrinology for her diabetes and by Neurology for her mechanical fall. We will continue current level of care at this time PHYSICAL EXAMINATION: GENERAL: She is alert and oriented x3. VITAL SIGNS: Temperature is 97.7, her pulse is 73, the blood pressure is 131/64, respiratory rate is 18, and oxygen saturation is 95% on room air. LUNGS: Clear. HEART: In S1 and S2 rhythm. ABDOMEN: Soft with positive bowel sounds. EXTREMITIES: Show evidence of edema. MEDICATIONS: Currently the patient is on 30 mg of codeine every 8 hours with Tylenol for moderate pain, Glucotrol 10 mg 2 times daily, Januvia 100 mg daily, Levemir 8 units at bedtime. She is on lisinopril 10 mg daily for hypertension, and sliding insulin scale for [id number] diabetes. LABORATORY DATA: Shows a sodium 138, potassium 4.8, chloride 108, CO2 26. The BUN is 35, the creatinine is 1.1. LFTs are normal. Her blood sugar is 159. CBC shows WBC of 4.6, RBC 4.06, hemoglobin 12, hematocrit 36.5, platelet count is 147. PLAN: Continue current level of care. I have requested a GI consult. The patient states that she has been constipated for several days, did have some milk of magnesia. However, she denies any abdominal pain. Will await input from GI. They are awaiting a bed on TCU for this and we will continue physical therapy. Sheryl Castro MD
--- NOTE | 2018-09-06 16:59 | CP.PCM.CON ---
<Justus Villa - Last Filed: 09/06/18 16:56> History of Present Illness - History of Present Illness History of Present Illness: PGY 4 GI fellow consult note Patient is a 88-year-old white female with a history of diabetes type 2, hypertension, knee arthritis, spinal stenosis who was admitted a few days ago after a mechanical fall with subsequent pubic rami fracture. GI later consulted for constipation. During our encounter, patient was sitting in bedside chair. She states it has b een several days since her last bowel movement. She states bowel movements prior to admission were without any signs of bleeding. She denies any abdominal pain, nausea, vomiting, weight loss, dysphagia. During her stay she has been receiving narcotic pain medication and has not been as ambulatory as before. She states she has never had a colonoscopy before. 12 point review of systems negative other than stated above Medical history: See above Surgical history: Hysterectomy Medications: Reviewed in chart Family history: Denied GI problems Social history: Negative 3 Allergies no known drug allergies Past Patient History - Infectious Disease Hx of Infectious Diseases: None - Tetanus Immunizations Tetanus Immunization: Unknown - Past Social History Smoking Status: Never Smoked - CARDIAC Hx Hypertension: Yes - PULMONARY Hx Respiratory Disorders: No - NEUROLOGICAL Hx Neurological Disorder: No - HEENT Hx HEENT Problems: No Other/Comment: glasses for reading - RENAL Hx Chronic Kidney Disease: No - ENDOCRINE/METABOLIC Hx Diabetes Mellitus Type 1: Yes - HEMATOLOGICAL/ONCOLOGICAL Hx Blood Disorders: No - INTEGUMENTARY Hx Dermatological Problems: No - MUSCULOSKELETAL/RHEUMATOLOGICAL Hx Musculoskeletal Disorders: No Hx Falls: Yes - GASTROINTESTINAL Hx Gastrointestinal Disorders: No - GENITOURINARY/GYNECOLOGICAL Hx Genitourinary Disorders: No - PSYCHIATRIC Hx Psychophysiologic Disorder: No - SURGICAL HISTORY Hx Surgeries: Yes - ANESTHESIA Hx Anesthesia: Yes Hx Anesthesia Reactions: No Meds Home Medications: Home Medication List Medication Instructions Recorded Confirmed Type Glimepiride [amaRYL] 4 mg PO ACBD tab 09/04/18 Rx Insulin Human Regular-LOW [HumuLIN 0 units SC ACHS ml 09/04/18 Rx R LOW] Lisinopril [Zestril] 10 mg PO DAILY tab 09/04/18 Rx SITagliptin [Januvia] 100 mg PO DAILY tab 09/04/18 Rx Allergies/Adverse Reactions: Allergies Allergy/AdvReac Type Severity Reaction Status Date / Time No Known Allergies Allergy Verified 08/21/14 16:27 - Medications Medications: Current Medications Acetaminophen (Tylenol 325mg Tab) 325 mg PO Q8H PRN PRN Reason: Pain, moderate (4-7) Last Admin: 09/05/18 19:37 Dose: 325 mg Codeine Sulfate (Codeine) 30 mg PO Q8H PRN PRN Reason: Pain, moderate (4-7) Glipizide (Glucotrol) 10 mg PO ACBD [facility] Last Admin: 09/06/18 08:26 Dose: 10 mg Insulin Detemir (Levemir) 8 unit SC [facility] Last Admin: 09/05/18 22:58 Dose: 8 units Insulin Human Regular (Humulin R Low) 0 units SC [facility]; Protocol Last Admin: 09/06/18 12:21 Dose: 3 units Lisinopril (Zestril) 10 mg PO DAILY [facility] Last Admin: 09/06/18 09:53 Dose: 10 mg Magnesium Hydroxide (Milk Of Magnesia) 30 ml PO DAILY PRN PRN Reason: Constipation Last Admin: 09/05/18 11:42 Dose: 30 ml Polyethylene Glycol (Miralax) 17 gm PO DAILY [facility] Last Admin: 09/06/18 14:00 Dose: 17 gm Sitagliptin Phosphate (Januvia) 100 mg PO DAILY [facility] Last Admin: 09/06/18 09:53 Dose: 100 mg Physical Exam - Constitutional Appears: Well, No Acute Distress - Head Exam Head Exam: ATRAUMATIC, NORMAL INSPECTION - Eye Exam Eye Exam: EOMI. absent: Scleral icterus - ENT Exam ENT Exam: Mucous Membranes Moist. absent: Mucous Membranes Dry - Respiratory Exam Respiratory Exam: NORMAL BREATHING PATTERN. absent: Accessory Muscle Use, Respiratory Distress - Cardiovascular Exam Cardiovascular Exam: REGULAR RHYTHM, RRR - GI/Abdominal Exam GI & Abdominal Exam: Distended (mildly), Hypoactive Bowel Sounds, Soft. absent: Bruit, Diminished Bowel Sounds, Firm, Guarding, Hernia, Mass, Organomegaly, Rigid, Tenderness - Rectal Exam Rectal Exam: Deferred - Extremities Exam Extremities exam: Positive for: normal inspection, pedal edema - Neurological Exam Neurological exam: Alert, CN II-XII Intact - Psychiatric Exam Psychiatric exam: Normal Affect, Normal Mood - Skin Skin Exam: Normal Color, Warm Results - Vital Signs Recent Vital Signs: Last Vital Signs Temp 97.5 F L 09/06/18 14:00 Pulse 78 09/06/18 14:00 Resp 18 09/06/18 14:00 BP 115/74 09/06/18 14:00 Pulse Ox 98 09/06/18 14:00 - Labs Result Diagrams: 09/06/18 07:15 09/06/18 07:15 Labs: Laboratory Results - last 24 hr 09/05/18 09/06/18 09/06/18 21:57 06:32 07:15 WBC 4.6 D RBC 4.06 Hgb 12.1 Hct 36.5 MCV 89.9 MCH 29.8 MCHC 33.2 RDW 12.8 Plt Count 147 MPV 10.4 Neut % (Auto) 56.4 Lymph % (Auto) 28.5 [place] % (Auto) 9.7 H Eos % (Auto) 4.5 Baso % (Auto) 0.9 Lymph # (Auto) 1.3 [place] # (Auto) 0.5 Eos # (Auto) 0.2 Baso # (Auto) 0.04 Absolute Neuts (auto) 2.61 Sodium Potassium Chloride Carbon Dioxide Anion Gap BUN Creatinine Est GFR ( Amer) Est GFR (Non-Af Amer) POC Glucose (mg/dL) 199 H 166 H Random Glucose Calcium Total Bilirubin AST ALT Alkaline Phosphatase Total Protein Albumin Globulin Albumin/Globulin Ratio 09/06/18 09/06/18 09/06/18 07:15 10:52 15:50 WBC RBC Hgb Hct MCV MCH MCHC RDW Plt Count MPV Neut % (Auto) Lymph % (Auto) [place] % (Auto) Eos % (Auto) Baso % (Auto) Lymph # (Auto) [place] # (Auto) Eos # (Auto) Baso # (Auto) Absolute Neuts (auto) Sodium 138 Potassium 4.8 Chloride 108 H Carbon Dioxide 26 Anion Gap 9 L BUN 35 H Creatinine 1.1 Est GFR ( Amer) 57 Est GFR (Non-Af Amer) 47 POC Glucose (mg/dL) 224 H 159 H Random Glucose 159 H Calcium 9.3 Total Bilirubin 0.5 AST 16 ALT 14 Alkaline Phosphatase 74 Total Protein 6.0 Albumin 3.2 Globulin 2.8 Albumin/Globulin Ratio 1.2 Assessment & Plan - Assessment and Plan (Free Text) Assessment: 88-year-old white female with diabetes, hypertension, arthritis, spinal stenosis presenting after mechanical fall with pubic rami fracture. Plan: fleets enema Daily MiraLAX monitor response patient seen and examined with Dr. Trevino. Please see attestation for further recommendations/changes Portions of this note have been dictated but not necessarily proofread <Zion Trevino V - Last Filed: 09/06/18 23:59> Meds - Medications Medications: Current Medications Acetaminophen (Tylenol 325mg Tab) 325 mg PO Q8H PRN PRN Reason: Pain, moderate (4-7) Last Admin: 09/05/18 19:37 Dose: 325 mg Codeine Sulfate (Codeine) 30 mg PO Q8H PRN PRN Reason: Pain, moderate (4-7) Glipizide (Glucotrol) 10 mg PO ACBD [facility] Last Admin: 09/06/18 17:28 Dose: 10 mg Insulin Detemir (Levemir) 8 unit SC HS [facility] Last Admin: 09/06/18 22:46 Dose: 8 units Insulin Human Regular (Humulin R Low) 0 units SC ACHS [facility]; Protocol Last Admin: 09/06/18 22:46 Dose: Not Given Lisinopril (Zestril) 10 mg PO DAILY [facility] Last Admin: 09/06/18 09:53 Dose: 10 mg Magnesium Hydroxide (Milk Of Magnesia) 30 ml PO DAILY PRN PRN Reason: Constipation Last Admin: 09/05/18 11:42 Dose: 30 ml Polyethylene Glycol (Miralax) 17 gm PO DAILY [facility] Last Admin: 09/06/18 14:00 Dose: 17 gm Sitagliptin Phosphate (Januvia) 100 mg PO DAILY [facility] Last Admin: 09/06/18 09:53 Dose: 100 mg Results - Vital Signs Recent Vital Signs: Last Vital Signs Temp 98.1 F 09/06/18 22:00 Pulse 84 09/06/18 22:00 Resp 20 09/06/18 22:00 BP 183/64 H 09/06/18 22:00 Pulse Ox 96 09/06/18 22:00 - Labs Result Diagrams: 09/06/18 07:15 09/06/18 07:15 Labs: Laboratory Results - last 24 hr 09/06/18 09/06/18 09/06/18 06:32 07:15 07:15 WBC 4.6 D RBC 4.06 Hgb 12.1 Hct 36.5 MCV 89.9 MCH 29.8 MCHC 33.2 RDW 12.8 Plt Count 147 MPV 10.4 Neut % (Auto) 56.4 Lymph % (Auto) 28.5 [place] % (Auto) 9.7 H Eos % (Auto) 4.5 Baso % (Auto) 0.9 Lymph # (Auto) 1.3 [place] # (Auto) 0.5 Eos # (Auto) 0.2 Baso # (Auto) 0.04 Absolute Neuts (auto) 2.61 Sodium 138 Potassium 4.8 Chloride 108 H Carbon Dioxide 26 Anion Gap 9 L BUN 35 H Creatinine 1.1 Est GFR ( Amer) 57 Est GFR (Non-Af Amer) 47 POC Glucose (mg/dL) 166 H Random Glucose 159 H Calcium 9.3 Total Bilirubin 0.5 AST 16 ALT 14 Alkaline Phosphatase 74 Total Protein 6.0 Albumin 3.2 Globulin 2.8 Albumin/Globulin Ratio 1.2 09/06/18 09/06/18 09/06/18 10:52 15:50 21:32 WBC RBC Hgb Hct MCV MCH MCHC RDW Plt Count MPV Neut % (Auto) Lymph % (Auto) [place] % (Auto) Eos % (Auto) Baso % (Auto) Lymph # (Auto) [place] # (Auto) Eos # (Auto) Baso # (Auto) Absolute Neuts (auto) Sodium Potassium Chloride Carbon Dioxide Anion Gap BUN Creatinine Est GFR ( Amer) Est GFR (Non-Af Amer) POC Glucose (mg/dL) 224 H 159 H 282 H Random Glucose Calcium Total Bilirubin AST ALT Alkaline Phosphatase Total Protein Albumin Globulin Albumin/Globulin Ratio Attending/Attestation - Attestation I have personally seen and examined this patient.: Yes I have fully participated in the care of the patient.: Yes I have reviewed all pertinent clinical information: Yes Notes (Text): This is an addendum to GI progress report dictated by the GI Fellow. The patient was seen and examined earlier. Medical records, lab studies, imagings were reviewed. Last 24 hours events reviewed. Agreed with the above treatment plan as outlined in GI Fellow 's notes with the addition of the following 09/06/18 23:58
[2018-09-06 22:45] VITALS: O2SAT 96
[2018-09-06] MEDS: Insulin Detemir 100 units/ml Vial (Levemir) SC SCH (22:46)
[2018-09-07 08:19] VITALS: PULSE 66; RESP 17; TEMP 97.7
[2018-09-07] MEDS: Insulin Reg-LOW-Coverage SC SCH ×2 (08:56→12:06)
--- NOTE | 2018-09-07 09:26 | PN ---
DATE: 09/05/2018 PHYSICAL EXAMINATION: VITAL SIGNS: The patient's temperature is 98, blood pressure is 114/76, respiratory rate is 20, oxygen sat is 98% on room air. GENERAL: The patient is alert, oriented x3. NECK: Supple. No JVD. LUNGS: Clear. HEART: S1, S2 rhythm. ABDOMEN: Soft with positive bowel sounds. EXTREMITIES: No evidence of edema. CURRENT MEDICATIONS: Consist of codeine 30 mg every 8 hours p.r.n. for moderate pain with Tylenol 325. She has been placed on glipizide 10 mg b.i.d., Januvia 100 mg daily, Levemir 8 units at bedtime. She is on lisinopril 10 mg daily for hypertension. She is on fingerstick blood sugar coverage. ASSESSMENT AND PLAN: 1. The patient is status post fall at home, being followed by Orthopedics and Neurology. She is awaiting the final readings of MRIs of her knees. 2. She is receiving physical and occupational therapy. 3. She has non-insulin dependent diabetes, being followed by Dr. Shah, endocrinology service. She has been encouraged to walk with assistance using the walker as recommended by Physical Therapy. She is being accepted to TCU. We are waiting for the final report from MRI, it is now two days late. Sheryl Castro MD
[2018-09-07] MEDS: POLYETHYLENE GLYCOL 3350 17 GM/Dose PACKET PO SCH (09:42)
[2018-09-07 09:45] VITALS: BP 124/68
--- NOTE | 2018-09-07 10:24 | PN ---
DATE: 09/05/2018 ENDO FOLLOWUP NOTE LOCATION: In room 562. SUBJECTIVE: This is an 88-year-old female with known history of uncontrolled type 2 insulin-requiring diabetes, presenting here with an accidental fall sustaining a pubic rami pelvic fracture and is now being followed closely for metabolic management. Her glycemic levels were initially extremely elevated on admission and continue at this time to have glycemic fluctuations as noted thereof. Her glucose values today have ranged from 167 to 226 and 356 mg/dL. LABORATORY DATA: Her chemistries showed a BUN of 22, sodium 138, potassium 4.2, chloride 109, CO2 24, glucose 229 and creatinine 1.0. ASSESSMENT: So at this time, we will continue the modified oral hypoglycemic drug therapy given in combination and continue the glipizide given as 10 mg b.i.d. before meals as ordered. We will also continue the Januvia given as 100 mg once daily as ordered. We will continue also the low-dose correction scale using Humalog insulin as ordered. However, because of the persistent hyperglycemic accelerations, we will add basal insulin given as Levemir at 80 units subcu at bedtime daily as given. We will hopefully be giving only the insulin therapy for inpatient diabetic management and the patient not having to go home on insulin therapy. With the recent physical stressors, especially the pelvic fracture was noted, this will contribute to increased insulin resistance and further impaired glucose tolerance thereof. We will obtain serial chemistries and supplement accordingly as needed. We will follow. Anne-Marie Shah MD
[2018-09-07] MEDS ORDERED: Bisacodyl 5mg EC Tab PO ONE (12:20)
--- NOTE | 2018-09-07 13:43 | CP.PCM.PN ---
<NomiMaribel - Last Filed: 09/07/18 13:47> Subjective - Date & Time of Evaluation Date of Evaluation: 09/07/18 Time of Evaluation: 13:37 - Subjective Subjective: Gastroenterology Fellow/PGY6 Progress Note Patient sitting in chair comfortably. Denies abdominal pain. Tolerating regular diet. Patient notes large soft bowel movement last night. A 12-point review of systems negative except for as above. Objective - Vital Signs/Intake and Output Vital Signs (last 24 hours): Temp Pulse Resp BP Pulse Ox 97.7 F 66 17 124/68 96 09/07/18 06:00 09/07/18 06:00 09/07/18 06:00 09/07/18 09:42 09/07/18 06:00 - Medications Medications: Current Medications Acetaminophen (Tylenol 325mg Tab) 325 mg PO Q8H PRN PRN Reason: Pain, moderate (4-7) Last Admin: 09/05/18 19:37 Dose: 325 mg Codeine Sulfate (Codeine) 30 mg PO Q8H PRN PRN Reason: Pain, moderate (4-7) Glipizide (Glucotrol) 10 mg PO ACBD [facility] Last Admin: 09/07/18 09:42 Dose: 10 mg Insulin Detemir (Levemir) 8 unit SC HS [facility] Last Admin: 09/06/18 22:46 Dose: 8 units Insulin Human Regular (Humulin R Low) 0 units SC ACHS [facility]; Protocol Last Admin: 09/07/18 12:06 Dose: Not Given Lisinopril (Zestril) 10 mg PO DAILY [facility] Last Admin: 09/07/18 09:42 Dose: 10 mg Magnesium Hydroxide (Milk Of Magnesia) 30 ml PO DAILY PRN PRN Reason: Constipation Last Admin: 09/05/18 11:42 Dose: 30 ml Polyethylene Glycol (Miralax) 17 gm PO DAILY [facility] Last Admin: 09/07/18 09:42 Dose: 17 gm Sitagliptin Phosphate (Januvia) 100 mg PO DAILY [facility] Last Admin: 09/07/18 09:42 Dose: 100 mg - Labs Labs: 09/06/18 07:15 09/06/18 07:15 PT 12.5 SECONDS (9.4-12.5) 09/01/18 13:20 INR 1.11 09/01/18 13:20 APTT 30.2 Seconds (26.9-38.3) 09/01/18 13:20 - Constitutional Appears: Non-toxic, No Acute Distress - Head Exam Head Exam: ATRAUMATIC, NORMOCEPHALIC - Eye Exam Eye Exam: EOMI, PERRL. absent: Scleral icterus Pupil Exam: PERRL. absent: Miosis, Mydriatic - ENT Exam ENT Exam: Mucous Membranes Moist, Normal Oropharynx - Neck Exam Neck Exam: Full ROM, Normal Inspection - Respiratory Exam Respiratory Exam: Clear to Ausculation Bilateral. absent: Rales, Rhonchi, Wheezes - Cardiovascular Exam Cardiovascular Exam: RRR, +S1, +S2. absent: Gallop, Rubs - GI/Abdominal Exam GI & Abdominal Exam: Soft, Normal Bowel Sounds. absent: Distended, Firm, Guarding, Rigid, Tenderness, Organomegaly, Rebound - Extremities Exam Extremities Exam: Normal Inspection. absent: Pedal Edema - Neurological Exam Neurological Exam: Alert, Awake - Psychiatric Exam Psychiatric exam: Normal Affect, Normal Mood - Skin Skin Exam: Dry, Intact, Normal Color, Warm Assessment and Plan - Assessment and Plan (Free Text) Assessment: 88 year old female with PMH of DM, HTN, severe lumbar spinal stenosis, and arthritis presenting with mechanical fall complicated by left pubic rami fracture. GI consultation for constipation. No prior colonoscopy. Plan: -one formed stool s/p fleet enema overnight -continue Miralax daily -ordered Dulcolax 10mg once today -tolerating diabetic diet -will monitor clinical course <Zion Trevino V - Last Filed: 09/07/18 23:58> Objective - Vital Signs/Intake and Output Vital Signs (last 24 hours): Temp Pulse Resp BP Pulse Ox 97.7 F 66 17 124/68 96 09/07/18 06:00 09/07/18 06:00 09/07/18 06:00 09/07/18 09:42 09/07/18 06:00 Intake and Output: 09/07/18 09/08/18 18:59 06:59 Intake Total 600 Balance 600 - Labs Labs: 09/06/18 07:15 09/06/18 07:15 PT 12.5 SECONDS (9.4-12.5) 09/01/18 13:20 INR 1.11 09/01/18 13:20 APTT 30.2 Seconds (26.9-38.3) 09/01/18 13:20 Attending/Attestation - Attestation I have personally seen and examined this patient.: Yes I have fully participated in the care of the patient.: Yes I have reviewed all pertinent clinical information, including history, physical exam and plan: Yes Notes (Text): This is an addendum to GI progress report dictated by the GI Fellow. The patient was seen and examined earlier. Medical records, lab studies, imagings were reviewed. Last 24 hours events reviewed. Agreed with the above treatment plan as outlined in GI Fellow 's notes with the addition of the following 09/07/18 23:57
--- NOTE | 2018-09-07 19:42 | DS ---
HISTORY OF PRESENT ILLNESS: This is an 88-year-old female on [facility]. The patient was admitted status post mechanical fall at home sustaining a fracture of the left pelvis. She has a history of prior fall with fracture of the right pelvis and she has a history of arthritis of the knees. She also has a history of loc-hlbzhrw-kfujjxwak diabetes, ovarian cancer with hysterectomy, hypertension, hyperlipidemia. While in the hospital, she was seen by Dr. Cardona of orthopedic service, Dr. Trevino of GI service, and Dr. Shah of the Endocrinology service. She was found to have changes of arthritis in both knees along with some ligamentous meniscal care. She had a CAT scan of the head which was negative. She also had constipation while in the hospital, was seen by GI as well as by Neurology. The patient had labs showing WBC of 4.6, RBC 4.06, hemoglobin 12.1, hematocrit 36.5, platelet count of 147. Chemistry showed normal electrolytes, chloride was 108, BUN was 35, creatinine was 1.1. Her blood sugar was 115. She would be discharged for rehab. She would continue Tylenol With Codeine p.r.n. for pain, glipizide 10 mg b.i.d., Januvia 50 mg daily, Levemir 8 units subcutaneouslyat bedtime, magnesium hydroxide 30 mL p.r.n., MiraLax 17 g p.o. daily, Zestril 10 mg daily and Tylenol 2 tablets q.i.d. p.r.n. She also received a Dulcolax suppository while in the hospital. Family was aware of the patient's clinical status and treatment plan. She was ambulating with physical therapy using the walker 120 feet with a rolling walker. She was advised to continue this with the use of a walker. Sheryl Castro MD
--- NOTE | 2018-09-08 00:49 | PN ---
DATE: 09/07/2018 ENDOCRINOLOGY FOLLOWUP NOTE LOCATION: Room 562. This is an 88-year-old female with recent uncontrolled type 2 insulin-requiring diabetes, now being followed closely for metabolic management. Her glycemic levels are fluctuating but improved, and the glucose levels have ranged from 115 to 172 mg/dL. It was 282 at bedtime last night. Her chemistry showed a BUN of 35, sodium 138, potassium 4.8, chloride 108, CO2 of 26, glucose 159, and creatinine 1.1. So at this time, we will continue the same basal insulin as ordered last night with Levemir given as 8 units subcu at bedtime daily as given. We will continue her oral hypoglycemic therapy given in combination with glipizide at 10 mg b.i.d. before meals and Januvia at 50 mg once daily as ordered. We will obtain serial chemistries and supplement accordingly as needed. We will follow. Anne-Marie Shah MD
--- NOTE | 2018-09-08 15:49 | MRI ---
Date of service: 09/04/2018 PROCEDURE: MRI Right Knee HISTORY: Pain. COMPARISON: None available. TECHNIQUE: Multiecho multiplanar sequences were performed through the right knee. FINDINGS: ANTERIOR CRUCIATE LIGAMENT:: Intact. POSTERIOR CRUCIATE LIGAMENT:: Intact. MEDIAL MENISCUS:: Intact. LATERAL MENISCUS:: Intact. MEDIAL COLLATERAL LIGAMENT:: Intact. LATERAL COLLATERAL LIGAMENT COMPLEX:: Intact. QUADRICEPS TENDON:: Intact. PATELLAR TENDON:: Intact. CARTILAGE:: There is severe thinning of the patellar cartilage along the medial facet JOINT FLUID:: Moderate-sized joint effusion. OSSEOUS STRUCTURES:: Intact. OTHER FINDINGS: None. IMPRESSION: Severe thinning of the patellar cartilage along the medial facet. Moderate-sized joint effusion. PROCEDURE: MRI Left Knee HISTORY: Pain. COMPARISON: None available. TECHNIQUE: Multiecho multiplanar sequences were performed through the left knee. FINDINGS: ANTERIOR CRUCIATE LIGAMENT:: Intact. POSTERIOR CRUCIATE LIGAMENT:: Intact. MEDIAL MENISCUS:: There is a linear tear in the posterior horn of the medial meniscus. This is seen on image 7 series 15 and image 14 series 14. Degenerative changes are seen with thinning of the articular cartilage LATERAL MENISCUS:: Intact. MEDIAL COLLATERAL LIGAMENT:: Intact. LATERAL COLLATERAL LIGAMENT COMPLEX:: Intact. QUADRICEPS TENDON:: Intact. PATELLAR TENDON:: Intact. CARTILAGE:: There is thinning of the patellar cartilage JOINT FLUID:: There is a small joint effusion and a Murrell's cyst along the medial head of the gastrocnemius. This measures 8 mm in diameter and 58 mm in length. OSSEOUS STRUCTURES:: Intact. OTHER FINDINGS: None. IMPRESSION: There is a small joint effusion and a Murrell's cyst along the medial head of the gastrocnemius. This measures 8 mm in diameter and 58 mm in length. Thinning of the patellar cartilage Tear in the posterior horn of the medial meniscus
== END 2018-09-07 14:30 | DRG 536 ==
LOC: ED 10:25 → ERH 15:26 → 5RNO 20:30
PROVIDERS: ADMIT Internal Medicine; ATTEND Internal Medicine
DX: S32.592A Other specified fracture of left pubis, initial encounter for closed fracture (principal); M48.061 Spinal stenosis, lumbar region without neurogenic claudication; I10 Essential (primary) hypertension; M17.0 Bilateral primary osteoarthritis of knee; E11.65 Type 2 diabetes mellitus with hyperglycemia; E78.5 Hyperlipidemia, unspecified; K59.00 Constipation, unspecified; R26.2 Difficulty in walking, not elsewhere classified; W18.30XA Fall on same level, unspecified, initial encounter; Y92.000 Kitchen of unspecified non-institutional (private) residence as the place of occurrence of the external cause; Z79.84 Long term (current) use of oral hypoglycemic drugs; Z85.43 Personal history of malignant neoplasm of ovary

== ENCOUNTER 2018-09-07 14:38 | Inpatient (IN) | payer OTHER, MEDICARE ==
[2018-09-07 15:19] VITALS: BMI 25.8
[2018-09-07] MEDS ORDERED: Magnesium Hydroxide Susp 30 ml UD PO PRN (15:25)
[2018-09-07] MEDS: Insulin Reg-LOW-Coverage SC SCH ×2 (17:35→21:38)
[2018-09-07] MEDS ORDERED: Pneumococcal 23-Valent Vaccine IM ONE (21:34)
[2018-09-07] MEDS ORDERED: Influenza Vaccine 60 mcg/0.5 mL SYR (4YR UP) IM ONE (21:34)
[2018-09-07] MEDS: Insulin Detemir 100 units/ml Vial (Levemir) SC SCH (21:39)
[2018-09-08] MEDS: Insulin Reg-LOW-Coverage SC SCH ×4 (06:30→21:49)
[2018-09-08] MEDS: POLYETHYLENE GLYCOL 3350 17 GM/Dose PACKET PO SCH (09:59)
--- NOTE | 2018-09-08 15:59 | CON ---
DATE: 09/08/2018 ORTHOPEDIC CONSULTATION LOCATION: In room 327, bed 1. HISTORY OF PRESENT ILLNESS: The patient is an 88-year-old female known to me when I first saw her on 09/01/2018, when she was admitted to the hospital room for complaint of knee pain, weakness of the lower extremities and frequent falls. The last fall she fell just prior to admission, she actually sustained a pubic and ischial rami fracture, minimally displaced and she had a previous fall approximately 6 months ago fracturing the right pubic rami. So, at that visit when she came in the hospital on the 09/01/2018, CAT scan showed lumbar spine showing degenerative disc disease at multiple levels, multiple level spinal stenosis and bilateral neural foraminal stenosis and this I feel is contributing to her weakness of the lower extremities as the x-rays of her knee is compatible with mild osteoarthritis for her age, nothing significant, and she does not have any restrictive range of motion such as that would confirm severe arthritis with minimal effusion, so trying to do physical therapy as advised by the neurologist, medical team and can do this, but she may need an epidural in the future if nothing else contributes to getting her better, but as far as the need that seems to be the secondary importance was the reason why she is falling because of the weakness,due to the stenotic spinal column where the nerves are getting compromised in the quadriceps and knee muscles are weaker because of the compromised nerves. FINAL DIAGNOSES: Spinal stenosis of the lumbar spine, mild osteoarthritis of the knees, and a healing fracture of the left pubic and ischial rami, and she is going to get physical therapy on the TCU floor and she is to ambulate all these with a walker so avoiding another fall. Dagoberto Cardona DO [facility]
--- NOTE | 2018-09-08 19:41 | HP ---
DATE OF EXAM: 09/08/2018 HISTORY OF PRESENT ILLNESS: This is an 88-year-old female in Transitional Care Unit status post mechanical fall at home. The patient has a past medical history of hysterectomy with ovarian cancer ydt-pkfnbtx-fwiayfkxl diabetes, bilateral arthritis of the knees with meniscal tear, spinal stenosis, gait disorder, hypertension, and constipation. ALLERGIES: THERE ARE NO KNOWN ALLERGIES. SOCIAL HISTORY: She is a nonsmoker, nondrinker, non-drug user. REVIEW OF SYSTEMS: A 10 systems are reviewed. Pertinent findings as stated in the physical examination. PHYSICAL EXAMINATION: GENERAL: She is alert and oriented x3. VITAL SIGNS: Show a temperature of 97.4, blood pressure is 106/69, respiratory rate is 16. NECK: Supple. HEART: S1, S2 rhythm. LUNGS: Clear. ABDOMEN: Soft with positive bowel sounds. EXTREMITIES: Show no evidence of edema. LABORATORY DATA: Her blood sugar this morning was 148. CURRENT MEDICATIONS: Consist of 30 mg of codeine every 8 hours. p.r.n. for moderate pain along with Tylenol 325, Glucotrol 10 mg b.i.d., Humulin sliding insulin scale, Januvia 50 mg daily, Levemir 8 units subcutaneously at bedtime, milk of magnesia 30 mL p.r.n., MiraLax 17 g p.r.n., Zestril 10 mg daily. PLAN: 1. She will be receiving occupational, physical therapy while on the unit. 2. We will get a diabetic education while she is on the Transitional Care Unit. 3. We will monitor her blood pressure. 4. I have encouraged the patient to work with dietary regarding her dietary requirement for her diabetes. Sheryl Castro MD
[2018-09-08] MEDS: Insulin Detemir 100 units/ml Vial (Levemir) SC SCH (21:49)
--- NOTE | 2018-09-09 00:22 | PN ---
DATE: 09/08/2018 ENDOCRINOLOGY FOLLOWUP NOTE LOCATION: Room 562. SUBJECTIVE: This is an 88-year-old female with recent uncontrolled type 2 insulin-requiring diabetes now being followed closely for metabolic management. Her glycemic levels are fluctuating but improved and the glucose values have ranged from 148 to 195 and 213 mg/dL. LABORATORY DATA: Her latest chemistry showed a BUN of 35, sodium 138, potassium 4.8, chloride 108, CO2 of 26, glucose 159 and creatinine 1.1. ASSESSMENT AND PLAN: So at this time, we will continue the same basal insulin given at a low dose of Levemir at 8 units subcu at bedtime daily as given. We will continue the glipizide given as 10 mg b.i.d. before meals in combination with Januvia given as 50 mg once daily as ordered. We will titrate incrementally as indicated to optimize metabolic control. We will follow. Anne-Marie Shah MD MTDNain
[2018-09-09] MEDS: Insulin Reg-LOW-Coverage SC SCH ×4 (06:56→22:26)
[2018-09-09] MEDS: POLYETHYLENE GLYCOL 3350 17 GM/Dose PACKET PO SCH (09:49)
--- NOTE | 2018-09-09 12:41 | PN ---
DATE: 09/09/2018 SUBJECTIVE: An 88-year-old female on Transitional Care Unit, feels okay this morning. Nursing staff relates that there were no problems during the night. OBJECTIVE: VITAL SIGNS: Her temperature is 98, her blood pressure is 119/67, respiratory rate is 18, oxygen sat is 96% on room air. GENERAL: She is alert and oriented x3. LUNGS: Clear. HEART: S1, S2 rhythm. ABDOMEN: Soft with positive bowel sounds. EXTREMITIES: Show no evidence of edema. LABORATORY DATA: Her blood sugar this morning was 174. She is currently on codeine, Glucotrol, sliding insulin scale, Januvia, Levemir, milk of mag p.r.n., MiraLax, Tylenol p.r.n. and Zestril daily. IMPRESSION: 1. She has degenerative arthritis of the knees. 2. Anterior cruciate ligament tears. 3. Nondisplaced fractures of the left pelvis. 4. Wof-jafwmuu-jubmukdqz diabetes. 5. Hypertension. PLAN: She will continue on the above-mentioned medications. She has been placed on a bowel regimen, her bowel movements being followed by GI. She is also being followed by Endocrinology and Orthopedics. Continue current level of care and the patient will get an diabetic education regarding her diet and insulin use. Sheryl Castro MD
[2018-09-09] MEDS: Insulin Detemir 100 units/ml Vial (Levemir) SC SCH (22:27)
--- NOTE | 2018-09-10 01:34 | PN ---
DATE: 09/09/2018 ENDO FOLLOWUP NOTE LOCATION: Room 320, [facility]. SUBJECTIVE: This is an 88-year-old female with recent uncontrolled type 2 insulin-requiring diabetes, now being followed closely for metabolic management. She had a recent accidental fall at home sustaining a pelvic fracture in the pubic rami as noted thereof. She also had supervening hyperglycemic accelerations and basal insulin had to be added to improve her metabolic control thereof. Her glucose values today have ranged from 174 to 177 mg/dL. It was 243 at bedtime last night. PLAN: So at this time, we will modify once again her basal insulin and increase the Levemir to 10 units subcu at bedtime daily to start tonight. We will continue also the dual oral hypoglycemic therapy given as Januvia 50 mg once daily and glipizide given as 10 mg b.i.d. before meals as ordered. We are actually giving the basal insulin only for inpatient diabetic management to lower the glucose toxicity thereof as noted. We will obtain serial chemistries and supplement accordingly as needed. We will follow. Anne-Marie Shah MD
[2018-09-10] MEDS: Insulin Reg-LOW-Coverage SC SCH ×3 (06:32→21:18)
[2018-09-10 06:59] LABS: HEMOGLOBIN 13.2 g/dL (12.0-16.0); MEAN CELL VOLUME 89.7 fl (80.0-105.0); MEAN CORPUSCULAR HEMOGLOBIN 30.1 pg (25.0-35.0); MEAN CORPUSCULAR HGB CONC 33.5 g/dl (31.0-37.0); MEAN PLATELET VOLUME 9.8 fl (7.0-11.0); RBC 4.39 10^6/uL (3.5-6.1); RED CELL DISTRIBUTION WIDTH 12.8 % (11.5-14.5); WHITE BLOOD COUNT 4.9 10^3/uL (4.5-11.0)
[2018-09-10 07:33] LABS: ALB/GLOB RATIO 1.3 (1.1-1.8); ALBUMIN 3.9 g/dL (3.0-4.8); CALCIUM 10.1 mg/dL (8.4-10.5)
[2018-09-10] MEDS: POLYETHYLENE GLYCOL 3350 17 GM/Dose PACKET PO SCH (11:02)
--- NOTE | 2018-09-10 20:48 | PN ---
DATE: 09/10/2018 SUBJECTIVE: An 88-year-old female on the Transitional Care Unit, receiving occupational and physical therapy, status post mechanical fall at home with nondisplaced fractures of the left pelvis and degenerative changes of both knees. PHYSICAL EXAMINATION: Vital signs: Temperature is 97.6, blood pressure is 121/76, pulse is 79, respiratory rate is 18, oxygen sat on room air is 97%. GENERAL: The patient is alert and oriented x3. NECK: Supple. No JVD. LUNGS: Clear. HEART: S1, S2 rhythm. ABDOMEN: Soft with positive bowel sounds. EXTREMITIES: No evidence of edema. LABORATORY DATA: Sodium 139, potassium 5.2, chloride 107, CO2 of 26, anion gap of 11, BUN of 37, creatinine of 1.3. Random glucose is 143. LFTs are normal. MEDICATIONS: Currently, the patient is on codeine, Glucotrol, sliding insulin scale, Januvia, Levemir, milk of magnesia, MiraLax, Tylenol, and Zestril. ASSESSMENT AND PLAN: She is being followed by Orthopedics, Dr. Cardona, and Endocrinology, Dr. Shah. We will continue current management at this time and she is interacting with a adaptive physical educator and we will follow up the patient's labs. Sheryl Castro MD
[2018-09-10] MEDS: Insulin Detemir 100 units/ml Vial (Levemir) SC SCH (21:19)
--- NOTE | 2018-09-10 23:21 | PN ---
DATE: 09/10/2018 ENDOCRINOLOGY FOLLOWUP NOTE LOCATION: Room 320, [facility]. This is an 88-year-old female with recent uncontrolled type 2 insulin-requiring diabetes, now being followed closely for metabolic management. Her glycemic levels are fluctuating but improved, and the glucose levels today have ranged from 136 to 200 mg/dL. It was 220 at bedtime last night. The chemistry showed a BUN of 37, sodium 139, potassium 5.2, chloride 107, CO2 of 26, glucose 143, and creatinine 1.3. So at this time, we will continue the same modified basal insulin to allow for dose equilibration and keep her on the Levemir given as 10 units subcu at bedtime daily as started as given. We will also continue the dual oral hypoglycemic therapy with Januvia given as 50 mg daily and glipizide given as 10 mg b.i.d. before meals as ordered. We will obtain serial chemistries and supplement accordingly as needed. We will follow. Anne-Marie Shah MD
[2018-09-11 07:25] LABS: CALCIUM 9.7 mg/dL (8.4-10.5)
[2018-09-11] MEDS: Insulin Reg-LOW-Coverage SC SCH ×4 (08:04→22:05)
[2018-09-11] MEDS: POLYETHYLENE GLYCOL 3350 17 GM/Dose PACKET PO SCH (09:06)
--- NOTE | 2018-09-11 09:51 | PN ---
DATE: 09/11/2018 SUBJECTIVE: An 88-year-old female on the Transitional Care Unit receiving occupational and physical therapy. Nursing staff relates that there are no particular problems with the patient. This morning, the patient says that she was feeling a bit better. PHYSICAL EXAMINATION: GENERAL: She is alert and oriented x3. VITAL SIGNS: Her temperature was 97.5, her pulse was 70, her blood pressure was 112/70, respiratory rate was 16, oxygen saturation 97% on room air. NECK: Supple. LUNGS: Clear. HEART: S1, S2 rhythm. ABDOMEN: Soft with positive bowel sounds. EXTREMITIES: Show no evidence of edema. LABORATORY DATA: Shows the chemistry, sodium is 136, potassium is 5.1, chloride is 107, CO2 of 22. The BUN is 39, the creatinine is 1.2. The blood sugar was 197. Her calcium is 9.7. ASSESSMENT AND PLAN: 1. The patient is being followed by Endocrinology for lin-buibbpx-fulnrweax diabetes and continues on Januvia 50 mg daily, Levemir 10 units at bedtime, sliding insulin scale, and Glucotrol 10 mg b.i.d. along with a diet with low carbohydrate consistency. 2. She is status post fall at home with fractures nondisplaced of the left pelvis and a history of bilateral arthritic knees. She is receiving occupational and physical therapy. 3. She has a history of hypertension. 4. She is on a bowel regimen with MiraLax for her constipation and is moving her bowels. 5. Her pain is low at this time. 6. Her blood pressure is clinically stable continuing lisinopril 10 mg daily. She continues to be followed by Endocrinology and Orthopedics, will continue current level of care and follow the patient's labs. Sheryl Castro MD
--- NOTE | 2018-09-11 20:56 | PN ---
DATE: 09/11/2018 ENDO FOLLOWUP NOTE LOCATION: Room 320, [facility]. SUBJECTIVE: This is an 88-year-old female with recent uncontrolled type 2 insulin-requiring diabetes now being followed closely for metabolic management. Her glycemic levels are fluctuating, but improved and the glucose values overnight have ranged from 172 to 182 and 216 mg/dL. Her chemistry showed a BUN of 39, sodium 136, potassium 5.1, chloride 107, CO2 22, glucose 197 and creatinine 1.2. ASSESSMENT AND PLAN: So at this time, we will modify her oral hypoglycemic therapy and increase the Januvia to 100 mg once daily in the morning as ordered. We will titrate incrementally as indicated to optimize metabolic control. We will also continue the basal insulin given as Levemir at 10 units subcutaneously at bedtime daily as given. We will also continue the oral hypoglycemic therapy. The other oral hypoglycemic therapy with glipizide given as 10 mg b.i.d. before meals as ordered. We will obtain serial chemistries and supplement accordingly needed. We will follow. Anne-Marie Shah MD
[2018-09-11] MEDS: Insulin Detemir 100 units/ml Vial (Levemir) SC SCH (22:31)
[2018-09-12] MEDS: Insulin Reg-LOW-Coverage SC SCH ×4 (07:33→21:28)
[2018-09-12] MEDS: POLYETHYLENE GLYCOL 3350 17 GM/Dose PACKET PO SCH (09:00)
--- NOTE | 2018-09-12 11:16 | PN ---
DATE: 09/12/2018 SUBJECTIVE: An 88-year-old female in the transitional care unit receiving occupational and physical therapy, status post mechanical fall at home with nondisplaced fracture of the left pelvis and history of bilateral degenerative changes in the knees. PHYSICAL EXAMINATION: VITAL SIGNS: This morning show a temperature of 98, blood pressure is 126/63, respiratory rate is 16, oxygen sat is 97% on room air, pulse is 64. GENERAL: She is alert and oriented x3. LUNGS: Clear. HEART: S1, S2 rhythm. ABDOMEN: Soft with positive bowel sounds. EXTREMITIES: No evidence of edema. LABORATORY DATA: Shows a sodium of 137, potassium 5.1, chloride 107, CO2 of 27, BUN of 37, creatinine of 1.2, random blood sugar is 141, calcium is 10. MEDICATIONS: Currently, the patient is on Tylenol with Codeine for moderate pain, Glucotrol, sliding insulin scale for coverage, Januvia, Levemir, milk of magnesia and MiraLax for bowel protocol, lisinopril 10 mg daily, and Tylenol every 8 hours p.r.n. for moderate pain. ASSESSMENT AND PLAN: She is currently being followed by Orthopedics and Endocrinology. We will repeat her chemistries, get renal input regarding the potassium level, review her medications with Endocrinology, continue occupational and physical therapy. Sheryl Castro MD
--- NOTE | 2018-09-12 12:13 | PN ---
DATE: 09/12/2018 ENDO FOLLOWUP NOTE SUBJECTIVE: This is 88-year-old female with recent uncontrolled type 2 insulin-requiring diabetes now being followed closely for metabolic management. Her oral intake remains quite variable at this time and the glucose levels has been fluctuating, but improved otherwise with glucose values ranging from 148-185 mg/dL. Her chemistries showed a BUN of 37, sodium 137, potassium 5.1, chloride 107, CO2 of 27, glucose 141 and creatinine 1.2. So at this time, we will continue the same dual oral hypoglycemic drug therapy in combination with glipizide at 10 mg twice a day before meals and Januvia at 100 mg as modified once daily as ordered. We will continue also the low-dose correction scale using the Levemir at 10 units at bedtime daily. We will obtain serial chemistries and supplement accordingly as needed. We will follow. Anne-Marie Shah MD
[2018-09-12] MEDS: Insulin Detemir 100 units/ml Vial (Levemir) SC SCH (21:28)
--- NOTE | 2018-09-13 06:22 | CON ---
DATE OF CONSULTATION: 09/12/2018 REASON FOR CONSULTATION: Hyperkalemia. HISTORY OF PRESENT ILLNESS: An 88-year lady seen in the Transitional Care Unit. She was initially admitted on the 09/07/2018, status post fall at home. The patient is receiving physical therapy. She has a history of ovarian cancer, hysterectomy, NIDDM, arthritis, hypertension, spinal stenosis. Consultation is requested for elevated potassium level found on blood work today. Her potassium was 5.1. PAST MEDICAL/SURGICAL HISTORY: Hypertension, osteoarthritis, spinal stenosis, history of ovarian cancer, hysterectomy, chronic kidney disease stage 2. FAMILY HISTORY: Noncontributory. SOCIAL HISTORY: No smoking, no alcohol use, no IV drug abuse. MEDICATIONS: Glucotrol 10 b.i.d., Januvia 100 daily, Levemir 10, Tylenol, Zestril 10. ALLERGIES: NO KNOWN DRUG ALLERGIES. REVIEW OF SYSTEMS: All systems are reviewed, pertinent positives as mentioned in the history of presenting illness, rest unremarkable. PHYSICAL EXAMINATION: GENERAL: Elderly lady sitting in chair. VITAL SIGNS: Blood pressure 114/71, heart rate 65, respiratory rate 16, temperature 97.5. HEENT: Normocephalic, atraumatic, positive pallor. NECK: Supple, no JVD. LUNGS: Bilateral equal air entry, bilateral equal air expansion, no rales. CARDIAC: S1 and S2, regular rate and rhythm, no murmur, no rub. ABDOMEN: Soft, nondistended, nontender, bowel sounds present. EXTREMITIES: No lower extremity edema. LABORATORY DATA: WBC 4.9, hemoglobin 13, hematocrit 39, platelets 156,000. Sodium 137, potassium 5.1, chloride 107, CO2 of 27, BUN 37, creatinine 1.2, glucose 141, calcium 10.0. ASSESSMENT: 1. Mild hyperkalemia, likely secondary to Zestril. 2. Underlying chronic kidney disease, stage 2. 3. Zsm-lrhmwjl-dsiellvlv diabetes mellitus. 4. Hypertension. 5. Osteoarthritis. PLAN: 1. Change Zestril to 5 mg daily. 2. Check A1c. 3. Perhaps change Januvia to 50 mg daily. 4. Physical therapy. Rere Espinoza MD
[2018-09-13] MEDS: Insulin Reg-LOW-Coverage SC SCH ×4 (06:44→22:10)
[2018-09-13 07:12] LABS: ALB/GLOB RATIO 1.2 (1.1-1.8); ALBUMIN 3.6 g/dL (3.0-4.8); CALCIUM 9.9 mg/dL (8.4-10.5)
[2018-09-13] MEDS: POLYETHYLENE GLYCOL 3350 17 GM/Dose PACKET PO SCH (09:09)
--- NOTE | 2018-09-13 14:39 | PN ---
DATE: 09/13/2018 SUBJECTIVE: An 88-year-old female on the Transitional Care Unit, receiving occupational and physical therapy, status post mechanical fall at home with nondisplaced fracture of the left pelvis, history of bilateral degenerative arthritic changes of the knees, past history of fall with fracture, nondisplaced, of the right pelvis. The patient also has a history of spinal stenosis. She has a history of byl-ilhhnaz-oihhnadvt diabetes, hysterectomy secondary to ovarian cancer, hypertension. PHYSICAL EXAMINATION: VITAL SIGNS: Temperature of 97.8, pulse is 68, respiratory rate is 19, oxygen sat is 98% on room air. GENERAL: She is alert and oriented x3. NECK: Supple. No JVD. ABDOMEN: Soft with positive bowel sounds. LUNGS: Clear. HEART: Is in S1, S2 rhythm. EXTREMITIES: Show no evidence of edema. LABORATORY DATA: Chemistry with a sodium of 140, potassium 5.3, chloride 109, BUN of 37, creatinine is 1.2, blood sugar is 121. LFTs are normal. PLAN: 1. Reviewed the case with Renal and with Endocrinology. The lisinopril has been decreased in dose to 5 mg and the Januvia will be decreased in dose to 50 mg. We will follow with the patient's chemistries in hopes that this will improve her potassium. 2. She will continue on her pain management regimen for her arthritis and nondisplaced fractures of the left pelvis. She will continue with her physical therapy. She will continue on lisinopril 5 mg daily and on Levemir 10 units at bedtime along with Glucotrol 10 mg b.i.d. Findings have been discussed with the patient as well as with the staff. Sheryl Castro MD
--- NOTE | 2018-09-13 19:30 | PN ---
DATE: 09/13/2018 ENDO FOLLOWUP NOTE LOCATION: Room 320. SUBJECTIVE: This is an 88-year-old female with recent uncontrolled type 2 insulin requiring diabetes with recent hyperkalemia and is now being followed closely also for metabolic management. Her oral intake remains variable, but improved and the glucose levels today have ranged from 161 to 188 mg/dL. It was 118 before breakfast today and 296 at bedtime last night. LABORATORY DATA: Her chemistry showed a BUN of 37, sodium 140, potassium 5.3, chloride 109, CO2 26, glucose 121 and creatinine 1.2. Her A1c is elevated at 10.6%. ASSESSMENT AND PLAN: So at this time, we will plan to lower the Januvia to 50 mg once daily. However, after renal function improved, we would eventually recommend high dosing of Januvia at 100 mg once daily as ordered even on the outpatient eventually. We will also continue the glipizide given as 10 mg b.i.d. before meals as ordered. We will continue the basal insulin only for inpatient diabetic management and the dose of Levemir at 10 units subcutaneously at bedtime daily as given. We will obtain serial chemistries and supplement accordingly needed. We will follow. Anne-Marie Shah MD
[2018-09-13] MEDS: Insulin Detemir 100 units/ml Vial (Levemir) SC SCH (22:11)
[2018-09-14 06:52] LABS: CALCIUM 9.9 mg/dL (8.4-10.5)
[2018-09-14] MEDS: Insulin Reg-LOW-Coverage SC SCH ×4 (06:55→21:36)
--- NOTE | 2018-09-14 07:58 | CP.PCM.PN ---
Subjective - Date & Time of Evaluation Date of Evaluation: 09/14/18 Time of Evaluation: 07:15 - Subjective Subjective: Natanael Mcdermott D.O. PGY-3, Internal Medicine Resident, Endocrinology Progress Note 88 year old female with a PMH of arthritis, ovarian cancer s/p hysterectomy, NIDDM, arthritis, spinal stenosis, HTN, and constipation who presented s/p fall, found to have a pubic and ischial rami fracture. Patient is now undergoing PT in the TCU. Patient was seen and examined at bedside. In good spirits. No complaints at this time. States is actively participating in PT. Objective - Vital Signs/Intake and Output Vital Signs (last 24 hours): Temp Pulse Resp BP Pulse Ox 98.1 F 91 H 20 112/73 97 09/13/18 16:00 09/13/18 16:00 09/13/18 16:00 09/13/18 16:00 09/13/18 16:00 - Medications Medications: Current Medications Acetaminophen (Tylenol 325mg Tab) 325 mg PO Q8H PRN; Protocol PRN Reason: Pain, moderate (4-7) Last Admin: 09/11/18 21:56 Dose: 325 mg Codeine Sulfate (Codeine) 30 mg PO Q8H PRN; Protocol PRN Reason: Pain, moderate (4-7) Glipizide (Glucotrol) 10 mg PO 0700,1700 [facility]; Protocol Last Admin: 09/13/18 17:20 Dose: 10 mg Insulin Detemir (Levemir) 10 unit SC HS [facility]; Protocol Last Admin: 09/13/18 22:11 Dose: 10 units Insulin Human Regular (Humulin R Low) 0 units SC [facility]; Protocol Last Admin: 09/14/18 06:55 Dose: Not Given Lisinopril (Zestril) 5 mg PO DAILY [facility]; Protocol Last Admin: 09/13/18 09:08 Dose: 5 mg Magnesium Hydroxide (Milk Of Magnesia) 30 ml PO DAILY PRN; Protocol PRN Reason: Constipation Polyethylene Glycol (Miralax) 17 gm PO DAILY [facility]; Protocol Last Admin: 09/13/18 09:09 Dose: 17 gm Sitagliptin Phosphate (Januvia) 50 mg PO DAILY [facility] - Labs Labs: 09/10/18 06:45 09/14/18 06:30 - Constitutional Appears: Well, Non-toxic, No Acute Distress - Head Exam Head Exam: ATRAUMATIC, NORMOCEPHALIC - Eye Exam Eye Exam: absent: Scleral icterus - ENT Exam ENT Exam: Mucous Membranes Moist - Neck Exam Neck Exam: Normal Inspection - Respiratory Exam Respiratory Exam: Clear to Ausculation Bilateral. absent: Rales, Rhonchi, Wheezes - Cardiovascular Exam Cardiovascular Exam: +S1, +S2 - Extremities Exam Extremities Exam: absent: Calf Tenderness - Neurological Exam Neurological Exam: Alert, Awake - Psychiatric Exam Psychiatric exam: Normal Affect, Normal Mood - Skin Skin Exam: Dry, Warm Assessment and Plan - Assessment and Plan (Free Text) Assessment: 88 year old female with a PMH of arthritis, ovarian cancer s/p hysterectomy, NIDDM, arthritis, spinal stenosis, HTN, and constipation who presented s/p fall, found to have a pubic and ischial rami fracture. Patient is now undergoing PT in the TCU. Endocrinology following for metabolic management. Plan: 1. NIDDM Last HgbA1c is 10.6% On heart healthy diet with low consistent carb Continue glipizide 10mg BID Continue sitagliption 50mg QD (decreased from 100mg as having transient hyperkalemia, although possibly also related to lisinopril use which was also decreased from 10mg to 5mg) Continue accuchecks ACHS with RISS Following chemistries Discussed importance of proper diet and physical activity Patient was seen and examined and case will be discussed with attending physician. Natanael Mcdermott D.O. PGY-3 -
--- NOTE | 2018-09-14 08:46 | CON ---
DATE: 09/11/2018 HISTORY OF PRESENT ILLNESS: This is an 88-year-old female, transferred to [facility], had a mechanical fall at home and past medical history of hysterectomy with ovarian cancer and diabetes, arthritis of both the knees, spinal stenosis and gait problem, hypertension, constipation, transferred recently to [facility] for rehab. Called to evaluate the patient. PAST MEDICAL HISTORY: As above. SOCIAL HISTORY: Does not smoke, does not drink. ALLERGIES: NO KNOWN DRUG ALLERGY. PHYSICAL EXAMINATION: HEENT: Normocephalic and atraumatic. NECK: Supple. NEUROLOGIC: Awake, alert, and orientated x3. No aphasia. Cranial nerves II through XII are tested. Pupils reactive. EOMI. No facial asymmetry. Tongue midline. Motor examination; moves all the extremities equally. Tone normal. Deep tendon reflexes 1+. Both plantars are downgoing. Sensory appears intact. Cerebellar gait deferred. IMPRESSION: Low back pain secondary to fall. PLAN: Continue occupational and physical therapy. We will follow up. Khris Disla MD
[2018-09-14] MEDS: POLYETHYLENE GLYCOL 3350 17 GM/Dose PACKET PO SCH (10:13)
--- NOTE | 2018-09-14 15:25 | PN ---
DATE: 09/14/2018 LOCATION: Room 320 U. SUBJECTIVE: This is an 88-year-old female with recent uncontrolled type 2 insulin-requiring diabetes, presenting here with a pelvic fracture and is now being followed closely here in the TCU for ongoing physical and occupational therapy as given. Her glycemic levels are fluctuating but improved and the glucose values overnight have ranged from 125 to 133 mg/dL. Her repeat chemistry showed a BUN of 37, sodium 137, potassium 5.2, chloride 108, CO2 of 27, glucose 120 and creatinine 1.2. PLAN: So, at this time, we will continue the basal insulin given as Levemir at 10 units subcu at bedtime daily as given. We will continue also the glipizide given as 10 mg b.i.d. and eventually would recommend a titration of her Januvia to 100 mg once daily as ordered. We will obtain serial chemistries and supplement accordingly as needed. We will follow. Anne-Marie Shah MD
[2018-09-14 16:31] VITALS: RESP 18
--- NOTE | 2018-09-14 20:38 | PN ---
DATE: 09/14/2018 SUBJECTIVE: The patient is seen sitting in chair. She is awake. She is alert. She is comfortable. She denies any pain. She denies any shortness of breath. PHYSICAL EXAMINATION: GENERAL: Elderly lady, sitting in chair. VITAL SIGNS: Blood pressure 108/75, heart rate 60, respiratory rate 20, temperature 98.1. HEENT: Normocephalic, atraumatic. Positive pallor. NECK: Supple. No JVD. LUNGS: Bilateral equal air entry. Bilateral equal expansion. CARDIAC: S1 and S2. Regular rate and rhythm. No murmur. No rub. ABDOMEN: Soft, nondistended, nontender. Bowel sounds present. EXTREMITIES: No lower extremity edema. LABORATORY DATA: Sodium 137, potassium 5.2, chloride 108, CO2 of 27, BUN 37, creatinine 1.2, glucose 120, calcium 9.9. CURRENT MEDICATIONS: Glucotrol 10 mg, Januvia 50 mg, Levemir 10 units, MOM 30 mL, MiraLax 17 g, Tylenol 325 mg, and Zestril 5 mg. ASSESSMENT AND PLAN: 1. Hyperkalemia, likely related to angiotensin-converting enzyme inhibitor. 2. Well-controlled hypertension in fact blood pressure is low. 3. Poorly controlled diabetes. 4. Chronic kidney disease stage 3. 5. Severe osteoarthritis. PLAN: 1. Discontinue Zestril. 2. Start amlodipine 2.5 mg daily. 3. Physical therapy. Rere Espinoza MD
--- NOTE | 2018-09-14 20:47 | PN ---
DATE: 09/14/2018 SUBJECTIVE: An 88-year-old female in the transitional care unit, receiving occupational and physical therapy. PHYSICAL EXAMINATION: GENERAL: The patient is alert and oriented x3. VITAL SIGNS: Temperature is 98.1, pulse is 68, blood pressure is 112/73, oxygen sat is 98% on room air with a respiratory rate of 19. LUNGS: Clear. HEART: Is in S1, S2 rhythm. ABDOMEN: Soft with positive bowel sounds. EXTREMITIES: Show no evidence of edema. LABORATORY DATA: Shows sodium is 137, potassium is 5.2, chloride 108, BUN of 37, creatinine is 1.2, random blood sugar is 120. The patient has a hemoglobin A1c of 10.3. MEDICATIONS: Currently, the patient is taking Glucotrol 10 mg b.i.d., Januvia 50 mg daily, Levemir 10 units at bedtime, milk of magnesia p.r.n., MiraLax p.r.n. She is now be on Norvasc [address] of the lisinopril and Tylenol 325 mg every 8 hours p.r.n. for moderate pain. PLAN: She will continue current medical care, will follow up her labs. Sheryl Castro MD
[2018-09-14] MEDS: Insulin Detemir 100 units/ml Vial (Levemir) SC SCH (21:36)
[2018-09-15] MEDS: Insulin Reg-LOW-Coverage SC SCH ×2 (06:30→11:55)
[2018-09-15] MEDS: POLYETHYLENE GLYCOL 3350 17 GM/Dose PACKET PO SCH (09:53)
[2018-09-15 09:57] VITALS: BP 143/76; PULSE 86
[2018-09-15 11:06] VITALS: O2SAT 98
[2018-09-15 11:07] VITALS: TEMP 98.1
--- NOTE | 2018-09-15 14:25 | CP.PCM.PN ---
Subjective - Date & Time of Evaluation Date of Evaluation: 09/15/18 Time of Evaluation: 09:05 - Subjective Subjective: PGY5 GI Follow-up Pt seen and examined bedside Denies any abd pain +BM daily tolerating diet ROS: 12 point ROS conducted, neg other than above Objective - Vital Signs/Intake and Output Vital Signs (last 24 hours): Temp Pulse Resp BP Pulse Ox 98.1 F 86 18 143/76 98 09/15/18 11:06 09/15/18 11:06 09/15/18 11:06 09/15/18 11:06 09/15/18 11:06 - Medications Medications: Current Medications Acetaminophen (Tylenol 325mg Tab) 325 mg PO Q8H PRN; Protocol PRN Reason: Pain, moderate (4-7) Last Admin: 09/11/18 21:56 Dose: 325 mg Amlodipine Besylate (Norvasc) 5 mg PO DAILY [facility] Last Admin: 09/15/18 09:54 Dose: 5 mg Glipizide (Glucotrol) 10 mg PO 0700,1700 [facility]; Protocol Last Admin: 09/15/18 07:48 Dose: 10 mg Insulin Detemir (Levemir) 10 unit SC [facility]; Protocol Last Admin: 09/14/18 21:36 Dose: 10 units Insulin Human Regular (Humulin R Low) 0 units SC [facility]; Protocol Last Admin: 09/15/18 11:55 Dose: 1 unit Magnesium Hydroxide (Milk Of Magnesia) 30 ml PO DAILY PRN; Protocol PRN Reason: Constipation Polyethylene Glycol (Miralax) 17 gm PO DAILY [facility]; Protocol Last Admin: 09/15/18 09:53 Dose: Not Given Sitagliptin Phosphate (Januvia) 50 mg PO DAILY [facility] Last Admin: 09/15/18 09:53 Dose: 50 mg - Labs Labs: 09/10/18 06:45 09/15/18 06:40 - Constitutional Appears: Well, No Acute Distress - Head Exam Head Exam: ATRAUMATIC, NORMOCEPHALIC - Eye Exam Eye Exam: Normal appearance - ENT Exam ENT Exam: Mucous Membranes Moist, Normal Exam - Neck Exam Neck Exam: Normal Inspection - Respiratory Exam Respiratory Exam: Clear to Ausculation Bilateral, NORMAL BREATHING PATTERN. absent: Rales, Rhonchi, Wheezes, Respiratory Distress - Cardiovascular Exam Cardiovascular Exam: REGULAR RHYTHM, +S1, +S2 - GI/Abdominal Exam GI & Abdominal Exam: Soft, Normal Bowel Sounds. absent: Distended, Guarding, Rigid, Tenderness, Organomegaly, Rebound - Extremities Exam Extremities Exam: absent: Joint Swelling, Pedal Edema - Neurological Exam Neurological Exam: Alert, Awake, Oriented x3 - Psychiatric Exam Psychiatric exam: Normal Affect, Normal Mood - Skin Skin Exam: Dry, Intact, Normal Color, Warm Assessment and Plan - Assessment and Plan (Free Text) Assessment: 88 year old female with PMH of DM, HTN, severe lumbar spinal stenosis, and arthritis presenting with mechanical fall complicated by left pubic rami fracture. GI consultation for constipation. Plan: -increase water and fiber intake -recommend prune juice -continue miralax daily -follow-up with harriet as an oupt D/W Dr. Trevino
--- NOTE | 2018-09-15 16:01 | PN ---
DATE: 09/15/2018 ENDO FOLLOWUP NOTE LOCATION: Room 320 [facility]. SUBJECTIVE: This is an 88-year-old female with recent uncontrolled type 2 insulin-requiring diabetes, now being followed closely for metabolic management. Her glycemic levels are fluctuating, but improved as noted overnight and the glucose values have ranged from 127-197 mg/dL. LABORATORY DATA: Her chemistry showed a BUN of 39, sodium 137, potassium 5.2, chloride 107, CO2 of 26, glucose 138 and creatinine 1.2. ASSESSMENT AND PLAN: So, at this point, I would recommend for eventual discharge today, a higher dose of Januvia at 100 mg once daily in the morning as given. We will also continue the Glipizide given as 10 mg b.i.d. before meals as ordered. We will hold off on the basal insulin with Levemir as this was given only for inpatient diabetic management. She will follow with her primary physician, Dr. Castro, for ongoing medical and diabetic followup in the outpatient. Anne-Marie Shah MD
--- NOTE | 2018-09-15 16:20 | PN ---
DATE: 09/15/2018 SUBJECTIVE: The patient is currently seen dressed sitting in bed. She is anticipating being discharged home later today from the TCU. MEDICATIONS: Medication list reviewed. The patient is on glipizide, insulin sliding scale, Januvia, Levemir, milk of magnesia, MiraLax, Norvasc 5 mg a day, and Tylenol p.r.n. Lisinopril had been discontinued. OBJECTIVE: VITAL SIGNS: Blood pressure presently 143/76, temperature 98.1, respiratory rate 18 with a pulse of 86. HEENT: Exam shows her to be normocephalic, atraumatic. Conjunctivae are pink. Sclerae are nonicteric. NECK: Supple. No neck vein distention. CHEST: Clear to auscultation and percussion. No rales, rhonchi, or wheezing. CARDIOVASCULAR: Regular rate and rhythm without murmurs, rubs, or gallops. ABDOMEN: Soft. Nondistended. Bowel sounds normal. No rebound, guarding, or masses. EXTREMITIES: Show no lower extremity cyanosis, clubbing, or edema. LABORATORY DATA AND IMAGING: No recent CBC. Chemistries from today showed a potassium of 5.2, sodium 137, chloride 107, CO2 26 with a BUN of 39 and a creatinine of 1.2. Glucose level was 138. Calcium level was 10. ASSESSMENT: 1. Borderline to mild hyperkalemia. The patient cautioned about a low potassium diet upon discharge. She states she is already adhering to a low potassium diet. She will not be discharged home on an angiotensin converting enzyme inhibitor because of the tendency toward mild hyperkalemia. I agree with discharge home on the calcium channel hermelindo, amlodipine 5 mg a day. 2. Diabetes mellitus. Last hemoglobin A1c 10.6%. The patient needs to be more careful with dietary restrictions and continue medication for diabetes. 3. History of chronic kidney disease, stage II, stable. Creatinine is in the 1.2, baseline range. 4. History of severe osteoarthritis. PLAN: 1. Discussed with the patient the need to adhere to low potassium dietary restriction. 2. Told the patient not to use any lisinopril when she goes home. In place, she will be on amlodipine. 3. The patient will follow recommendations of the entry level accounting clerk regarding treatment of her diabetes. 4. I explained to her that better control of her diabetes will also lead to a more normal potassium level. The patient is awaiting Dr. Castro arrival and tentative discharge later today. Travis More MD
--- NOTE | 2018-09-16 08:28 | DS ---
SUBJECTIVE: An 88-year-old female on the Transitional Care Unit, receiving occupational and physical therapy, status post mechanical fall at home with nondisplaced fractures of the left pelvis. The patient also has a history of spinal stenosis, history of fracture of the right pelvis in the past, nondisplaced, history of [id number] diabetes, hypertension, history of hysterectomy for ovarian cancer, history of hyperlipidemia and hyperkalemia. After discussion with the individual consultants, the patient will be discharged home to be followed as an outpatient with home care services on Januvia 100 mg daily and Glucotrol 10 mg b.i.d. This was recommended by Endocrinology. She will be on amlodipine 2.5 mg daily for her blood pressure. PHYSICAL EXAMINATION: VITAL SIGNS: She had a temperature of 98.1, her blood pressure was 143/76, pulse was 86, respiratory rate was 18, oxygen sat was 98% on room air. GENERAL: She was alert and oriented x3. LUNGS: Clear. HEART: With regular S1, S2 rhythm. ABDOMEN: Soft with positive bowel sounds. EXTREMITIES: Show no evidence of edema. ASSESSMENT AND PLAN: She was cleared by all the individual consultants. She was also seen for constipation by gastrointestinal in the hospital which improved with bowel or laxative regimen. She has been encouraged to continue such regimen at home and she is aware of what her diet should be. She had a discussion with dietary as well as with the family living educator. She will be followed as an outpatient. Her daughter was aware of the clinical findings and results of all the studies and tests. Sheryl Castro MD
== END 2018-09-15 15:54 | disposition home or self-care (01) | DRG 536 ==
LOC: TRCU 14:38
PROVIDERS: ADMIT Internal Medicine; ATTEND Internal Medicine
PROC: F07Z9FZ Gait Training/Functional Ambulation Treatment using Assistive, Adaptive, Supportive or Protective Equipment (ICD-10-PCS; principal; 2018-09-08)
PROC: F07M6ZZ Therapeutic Exercise Treatment of Musculoskeletal System - Whole Body (ICD-10-PCS; 2018-09-08)
PROC: F08Z1ZZ Dressing Techniques Treatment (ICD-10-PCS; 2018-09-08)
PROC: F08Z2ZZ Grooming/Personal Hygiene Treatment (ICD-10-PCS; 2018-09-08)
PROC: F08Z0ZZ Bathing/Showering Techniques Treatment (ICD-10-PCS; 2018-09-08)
PROC: F08Z4ZZ Home Management Treatment (ICD-10-PCS; 2018-09-08)
DX: S32.592A Other specified fracture of left pubis, initial encounter for closed fracture (principal); W18.30XA Fall on same level, unspecified, initial encounter; E11.65 Type 2 diabetes mellitus with hyperglycemia; E78.5 Hyperlipidemia, unspecified; E87.5 Hyperkalemia; E11.22 Type 2 diabetes mellitus with diabetic chronic kidney disease; I12.9 Hypertensive chronic kidney disease with stage 1 through stage 4 chronic kidney disease, or unspecified chronic kidney disease; K59.00 Constipation, unspecified; M17.0 Bilateral primary osteoarthritis of knee; M48.061 Spinal stenosis, lumbar region without neurogenic claudication; M51.36 Other intervertebral disc degeneration, lumbar region; N18.3 Chronic kidney disease, stage 3 (moderate); T46.4X5A Adverse effect of angiotensin-converting-enzyme inhibitors, initial encounter; Z79.4 Long term (current) use of insulin; Z79.899 Other long term (current) drug therapy; Z85.43 Personal history of malignant neoplasm of ovary; Z90.710 Acquired absence of both cervix and uterus; Z91.81 History of falling